=== PATIENT | female | born 1945 | race Caucasian/White ===

== ENCOUNTER 2018-08-25 08:15 | Outpatient (CLI) | payer MEDICARE, BC, SELFPAY ==
[2018-08-26 13:27] LABS: Lyme Ab w Rflx to Lyme Confirm Negative
== END 2018-08-25 08:35 ==
PROVIDERS: PCP Family Medicine; Visit Provider Family Medicine
DX: W57.XXXA Bitten or stung by nonvenomous insect and other nonvenomous arthropods, initial encounter (principal); T14.8XXA Other injury of unspecified body region, initial encounter
CPT/HCPCS: 36415; 86618

== ENCOUNTER → 2018-08-31 12:52 | Outpatient (BNVA) | payer MEDICARE, BC, SELFPAY | PROVIDERS: Visit Provider Internal Medicine Interventional Cardiology | DX: I42.9 Cardiomyopathy, unspecified (principal); I10 Essential (primary) hypertension | CPT/HCPCS: 99213 ==

== ENCOUNTER 2018-09-22 07:55 | Outpatient (CLI) | payer MEDICARE, BC, SELFPAY ==
--- NOTE | 2018-09-22 08:07 | W.PREOPHP ---
Assessment and Plan (1) Left knee DJD: Current visit: Yes Status: Chronic Plan: Discussed surgical technique, recovery, benefits and risks including but not limited to risk of infection, blood clots, damage to soft tissue/nerves/blood vessels. After discussion of risks, patient understands and elects to proceed with scheduling surgery. Patient had opportunity to have questions answered to her satisfaction. Patient will continue with her scheduled preoperative visits and will be scheduled for left TKR with Dr. Eason on September 28, 2018. She will contact office if any issues arise. History of Present Illness Narrative: Ms. Hernandez is a 72-year-old female who presents to clinic for preoperative visit for her scheduled left TKR with Dr. Eason on September 28, 2018. Patient is status post right TKR done by Dr. Eason in 2003. Patient describes left knee pain occurring daily since 2015. Patient is unable to identify a localized area of pain but describes pain as being in the middle and across the joint line. Pain is aggravated when she attempts to kneel, is cleaning and if weightbearing for extended periods of time. Patient reports that she has been unable to kneel on her left side since onset of pain, also reports she is unable to kneel on her right TKR. Patient is unable to assess if stairs aggravate her pain but does have concerns with walking upstairs for fear of falling. Patient states that her knee feels weak but denies any instability. She experiences an occasional popping sensation as well as a numbness and tingling diffusely in the left knee at night following a day of prolonged activity. Patient reports she walks 1.5-3 miles daily with her dog, describes her walking path has a slight incline. Patient is able to complete her walk without shortness of breath or left knee pain. She experiences occasional diffuse knee pain if she twists a certain way while on the walk. Patient states that her knee discomfort is keeping her from doing certain activities i.e. bike riding. Patient states occasional Tylenol and heat application help to alleviate the diffuse pain. She denies regularly taking nauh-ctg-bdskyld pain medications. Denies any falls or injuries. As per note from Dr. Eason on June 11, 2016 - x-rays of left knee ?AP weightbearing and lateral films show decreased medial joint space, moderate hypertrophic spurring, lateral view shows large posterior osteophytes on the femur and tibia. Decreased patellofemoral joint space. No signs of loose bodies. Pertinent Surgical Information Patient has pertinent medical history of status post cardiac medical laboratory technologist with no stents placed in 2011 in [place] for TORREZ and abnormal stress test. As per cardiology notes patient also has history of cardiomyopathy which shows improved LVEF of 35-40% on echo from December 2017 from her previous LVEF 30-35% on echo from March 2017. She has had the presence of left bundle branch block as EKG finding since her EKGs done in 2015, previous EKGs dating in 2008 did not show signs of LBBB. EKG from July 27, 2017 reveals sinus rhythm with left bundle branch block, heart rate 66. Patient was last seen by her marine oil terminal superintendent on August 31, 2018 and is scheduled for follow-up in December 2018. As per cardiology note from that visit, her cardiomyopathy is maintained on low-dose BIA inhibitor, beta jeny and spironolactone at this time. Patient's chart indicates she has nocturnal hypoxemia that requires oxygen, however patient reports she does not wear oxygen at night. Reports episodes of feeling short of breath during the evening but when asked she denies symptoms of orthopnea and paroxysmal nocturnal dyspnea. She did have sleep study in 2015 which was negative. Review of systems is pertinent for dyspnea which occurs when patient gets worked up about things or feels anxious. She is able to walk 1.5-3 miles with her dog daily, snowshoe in the winter, clean her house and do ADLs without dyspnea. Denies history of chest pain, pain with shortness of breath, pain with breathing, diaphoresis, syncopal episodes. Denies past medical history of: stroke, angina, asthma, COPD, sleep apnea, liver issues, hepatitis, bleeding disorders, seizures, migraines, diabetes, autoimmune disorders, thyroid issues Denies prior complications from surgery or anesthesia. Review of Systems Constitutional Denies fever(s), Denies frequent falls and Denies headache(s) Eyes Denies change in vision ENT Reports vertigo, Denies ear discharge, Reports otalgia, Denies headache(s), Denies epistaxis, Reports nasal congestion, Denies nasal discharge, Reports post nasal drip (Occasional clear phlegm), Denies sinus pain and Denies sore throat Cardiovascular Denies chest pain, Reports rapid heart rate, Denies irregular heart rhythm, Reports dyspnea (Occurs when she gets worked up about certain issues and occasionally at night), Denies dyspnea on exertion (Able to walk with her dog 1.5-3 miles without shortness of breath) and Denies slow heart rate Respiratory Reports dyspnea (Occurs when she gets worked up about certain issues and occasionally at night), Denies dyspnea on exertion (Able to walk with her dog 1.5-3 miles without shortness of breath) and Denies wheezing Comments: Denies orthopnea, denies PND Gastrointestinal Denies abdominal pain, Denies melena, Denies hematochezia, Denies nausea and Denies vomiting Comments: Reports occasional bouts of constipation and diarrhea depending on diet; denies any symptoms this week. Genitourinary Denies hematuria, Denies dysuria, Reports urinary incontinence (Wears a pad 2-3 times weekly) and Reports urinary urgency (Denies recent change) Musculoskeletal Reports as per HPI Neurologic Reports vertigo, Denies frequent falls and Denies headache(s) Psychiatric Reports anxiety and Reports depression (Stable on medication) Allergic/Immunologic Denies wheezing PFSH Family History Mother Cerebrovascular accident Father Heart disease Alcohol abuse Sister Heart disease Sister Heart disease Sister No problems noted. Sister No problems noted. Brother Heart disease Brother FH: mental illness Brother No problems noted. Son Prostate cancer Daughter Heart disease Myocardial infarction Alcohol abuse Other Crohns disease Ulcerative colitis Medical History Hyperlipidemia (Chronic) Nocturnal hypoxemia (Acute 06/07/16) Heart failure (Acute) Vertigo (Resolved) Cardiomyopathy (Chronic) Left bundle branch block (Chronic) Depressed Hypertension Kidney stones Social History marital status: current occupational status: retired pets and animals: Yes pets and animals: dog(s) frequency: daily Smoking/Tobacco Use Status: Former Tobacco Use how long ago did patient quit smoking: quit in 1999; less than 10 pack years alcohol intake: current alcohol intake frequency: a few times a month Alcohol type: beer, wine and hard liquor substance use type: does not use Surgical History Hx of cardiac cath (Resolved) History of renal stent (Resolved) History of carpal tunnel surgery of right wrist (Resolved) Abdominal hysterectomy Replacement of total knee joint Meds Home Medications Medication Instructions Recorded Confirmed Type Proventil Hfa 2 puff INHALATION Q6H PRN #1 04/21/18 09/22/18 Clinic inhaler Metoprolol Succinate 25 mg PO DAILY #90 tab-cap 05/25/18 09/22/18 Clinic aspirin 81 mg tablet,delayed 81 mg PO DAILY 08/03/18 09/22/18 History release atorvastatin 20 mg tablet 20 mg PO DAILY 08/03/18 09/22/18 History naproxen sodium 220 mg tablet 220 mg PO BID PRN 08/03/18 09/22/18 History escitalopram oxalate [Lexapro] 30 mg PO HS 09/22/18 09/22/18 History lisinopril 20 mg PO HS 09/22/18 09/22/18 History spironolactone 12.5 mg PO HS 09/22/18 09/22/18 History Allergies Allergy/AdvReac Type Severity Reaction Status Date / Time No Known Allergies Allergy Verified 09/22/18 09:41 Exam Const General: cooperative and no acute distress HENNH Head: normal to inspection, normocephalic and atraumatic Ears: external ears normal and unable to visualize TM (Left due to excessive cerumen) on the left General nose exam: external nose normal and no nasal discharge Face and sinus: face symmetric Mouth: oral mucosae normal, lip normal, tongue normal and moist mucous membranes Teeth and gingiva: fair dentition Throat: posterior oropharynx normal Eyes General: appearance normal, both eyes and all related structures Pupils: PERRL EOM: EOM intact bilaterally Neck Neck: trachea midline Carotids: normal carotid upstroke Lymphatic: no lymphadenopathy noted Resp Effort & Inspection: normal respiratory effort and able to speak in complete sentences Auscultation: clear to auscultation bilaterally, no rales, no rhonchi and no wheezes Cardio Heart Sounds: S1 normal, S2 normal, no murmurs, no rubs and no other Pulses: radial pulses present bilaterally GI Palpation: soft, no hepatosplenomegaly and nontender Auscultation: normal bowel sounds Skin General skin exam: no rashes or lesions noted Neuro General: alert, awake and other (Dizziness is elicited with walking from chair to examination table and when she attempts to cross her eyes during extraocular movement testing) Extrem Other: Left knee examination: Skin is intact without areas of erythema, lesions or rashes. Mild edema is noted inferior to medial joint line. No signs of effusion are noted. Tenderness to palpation along medial and lateral joint line. No patellar apprehension is noted. Active range of motion yields short of full extension by less than 5 degrees and flexion of 100 degrees with diffuse knee discomfort noted. Knee is stable to valgus and varus stress, however pain is elicited at the medial aspect with knee stress. Muscle strength is 5 out of 5, no pain with resisted motion. Results Labs : 09/22/18 10:38 09/22/18 10:38
[2018-09-22 11:09] LABS: Abs Immature Grans 0.02 k/cumm (0.0-0.09); Absolute Basophil Count 0.03 k/cumm (0.0-0.2); Absolute Eosinophil Count 0.19 k/cumm (0.0-0.7); Absolute Lymphocyte Count 2.07 k/cumm (1.2-3.4); Absolute Monocyte Count 0.64 k/cumm (0.11-0.7); Absolute Neutrophil Count 6.18 k/cumm (1.2-6.7); Basophils % 0.3; Eosinophils % 2.1; HCT 40.8 % (36.0-46.0); HGB 13.6 g/dL (12.0-15.5); Immature Grans % 0.2; Lymphocytes % 22.7; Mean Corp. HGB Concentration 33.3 g/dL (32.0-36.0); Mean Corpuscular Hemoglobin 31.1 pg (27.0-33.0); Mean Corpuscular Volume 93.4 fL (80-95); Mean Platelet Volume 10.5 fL (8.0-11.0); Neutrophils % 67.7; Platelet Count 200 x1000/uL (130-400); RBC 4.37 m/cumm (4.00-5.20); RBC Distribution Width 12.9 % (11.7-14.6); White Blood Cell Count 9.13 k/cumm (4.4-10.8)
[2018-09-22 11:50] LABS: Anion Gap 9.9 mmol/L (3-11); BUN 17 mg/dL (7-18); CO2 28.1 mmol/L (21.0-32.0); CREATININE 0.78 mg/dL (0.55-1.02); Chloride 101 mmol/L (98-107); NT-proBNP 115 pg/mL; Potassium 4.3 mmol/L (3.5-5.1); Sodium 139 mmol/L (136-145)
== END 2018-09-22 08:15 ==
PROVIDERS: Internal Medicine Interventional Cardiology; PCP Family Medicine; Visit Provider Orthopaedic Surgery
DX: M25.562 Pain in left knee (principal); M17.12 Unilateral primary osteoarthritis, left knee; I42.9 Cardiomyopathy, unspecified; Z01.818 Encounter for other preprocedural examination; I50.1 Left ventricular failure, unspecified
CPT/HCPCS: 36415; 80051; 84520; NC; 82565; 83880; 85025

== ENCOUNTER 2018-09-28 05:55 | Inpatient (IN) | payer MEDICARE, BC, SELFPAY ==
--- NOTE | 2018-09-22 10:45 | PDOC.CMPRO ---
- If Service Date Differs Date of service: 09/22/18 Time of Service: 10:45 Care Management Progress Note CM met with Myra for her preop. She states that she will be having a (L) total knee done on Friday09/28/[address] Eason. Myra states that she has two children, one whom resides locally. Myra states that she resides alone, and that her daughter Alannah will be staying with her for a couple of days . Rosemarie states that she has four steps into her home, and that she has a cane at home. Rosemarie states that she would like to do outpatient PT at time of DC, though is unsure as to which physical therapy office she would like to go through. If a FWW is needed Rosemarie would prefer [facility].
[2018-09-28] VITALS (19 sets, daily range): BP systolic 101–134; BP diastolic 59–78; PULSE 59–75; RESP 12–20; TEMP 35.5–37.1; O2SAT 88–98
[2018-09-28] MEDS: Lactated Ringers 1,000 ML 80 ML IV ×2 (06:49→11:05)
[2018-09-28] MEDS: Bupivacaine LIPOSOME/PF 133 MG/10 ML VIAL IJ (07:18)
[2018-09-28] MEDS: Bupivacaine 0.25% Pres-Free 10 ML VIAL (07:18)
[2018-09-28] MEDS: Hydrogen Peroxide 3% 480 ML BTL (09:26)
[2018-09-28] MEDS: HYDROmorphone 2 MG/ML VIAL IVP ×3 (11:15→11:45)
--- NOTE | 2018-09-28 11:18 | DI.RAD_ITS ---
SYMPTOM/DIAGNOSIS: CHECK TOTAL KNEE COMPONENTS, S/P TOTAL KNEE LEFT KNEE: Two views. The patient is now status post left total knee replacement. The orthopedic hardware appears in good position. The soft tissues are unremarkable. There are skin tigre present. IMPRESSION: Status post left TKR.
[2018-09-28] MEDS: Ketorolac 30 MG/ML VIAL IVP ×2 (12:14→22:46)
[2018-09-28] MEDS: POTASSIUM CHLORIDE/0.9% NACL 1,000 ML 125 MEQ IV ×2 (12:48→22:19)
[2018-09-28] MEDS: Acetaminophen 325 MG TAB 650 MG PO (12:54)
--- NOTE | 2018-09-28 13:43 | PT.INIE ---
Date of service: 09/28/18 Time of Service: 13:03 PT Notes Inpatient Physical Therapy Evaluation Date: 09/28/18 Referring Doctor: Joe Eason PT Orders: PT CONSULT: mobilize post op L total knee. Get OOB ambulating in room this afternoon. WBAT to L Precautions: WBAT L LE, knee immobilizer with walking Patient Profile/Admitting Diagnosis: Pt is a 72yr old female s/p left total knee arthroplasty by Dr. Eason 09/28/18 PMHX: vertigo, right total knee arthroplasty 2003, right carpal tunnel syndrome, cardiomyopathy, left bundle branch block, hypertension, hyperlipidemia, abdominal hysterectomy, kidney stones Social History/Home Situation: Lives alone, 4 steps with railing to enter, can stay on one level inside of home. Baseline mobility independent gait with no device, independent with ADLS. Equipment Owned/DME: cane, shower chair, grab bars by toilet. Pt will need a FWW at discharge Subjective: Pt lying in bed, drousy, able to open eyes to verbal stimulus. Alert and agreeable to PT Consult. Objective: General Observation: IV R UE, wilburn catheter, HECK dressing left leg, knee immobilizer Mental Status: A& O x3 Pain: no c/o pain Bed Mobility/Transfers: * knee immobilizer on for all transfers Supine-sit: HOB 35 degrees, supervision Sit-stand: CGA with FWW Stand-sit: CGA Sit-supine: HOB flat, Rebecca for LE's Gait: * knee immobilizer on for all gait CGA with FWW 5 side steps at bedside. Pt unable to progress to gait in room due to eyes closing in upright positions, pt transferred back to bed with fall alarm activated. Therex: Initiaited ankle pumps bilaterally 20 reps Balance: Static Sitting: normal Dynamic Sitting: normal Static Standing: fair Dynamic Standing: fair Special Tests: Mobility Limitations Standardized Measure [facility] AM-PAC 6 clicks Basic Mobility Inpatient Short Form: Raw Score: 15 Standardized Score: 39.45 CMS Score: 57.70% CMS Modifier: CK Informed Consent/Education: Patient instructed in purpose of PT consult and plan of care. Assessment: Pt is a 72yr old female s/p left total knee arthroplasty by Dr. Eason 09/28/18 in setting of vertigo, right total knee arthroplasty 2003, right carpal tunnel syndrome, cardiomyopathy, left bundle branch block, hypertension. Patient presents with clinical signs and symptoms consistent with post op day 0 L TKA, as demonstrated by the following impairment level findings: weakness left quad, decreased strength and mobility with bed transfers, standing transfers and gait, requiring one person assist for into/out of bed, increased time to complete mobility, able to stand at bedside with FWW but unable to progress to gait training this afternoon due to post operative drowsiness. Pt lives alone and needs to be independent to be able to return to home setting, will benefit from skilled therapy intervention for strengthening and progressive mobility training. Pt will need a FWW for home at discharge to reduce risk of falls post operatively. Impairments are contributing to the following functional limitations: AMPAC score CMS Score: 57.70% Patient is assessed as a High [id number] complexity based on the following: History: see above Examination: see above Presentation: evolving Decision Making: AMPAC score CMS Score: 57.70% Goals: Goals X1 week 1. Supine-Sit : independent 2. Sit-Supine : independent 3. Sit-Stand : supervision with FWW 4. Stand-Sit : supervision 5. Bed-Chair : supervision with FWW 6. Chair-Bed : supervision with FWW 7. Gait : SBA with FWW 75ftx2 WBAT L LE 8. Stairs : up.down 4 steps with railing, SBA WBAT L LE 9. Independent with home exercise program for L TKA Plan of Care/Treatment Plan: 1-2x/day, 7 days/week x 1 week. Plan of care has been reviewed with the AUXILIARY PLANT OPERATOR providing the service under Physical Therapy direction. Initiate Physical Therapy intervention for strengthening, bed mobility, transfers, gait, stairs, balance training, use of assistive device. DISCHARGE RECOMMENDATIONS: Home with FWW and home PT vs. [facility] care facility for short term rehab TREATMENT CODE/TIME: 23min IE 1300 G Codes in the area mobility of walking and moving around: current status [id number] -CK; projected status GP [id number]. Discharge status (if discharging) GP [id number] CK based on AMPAC score CMS Score: 57.70% Aundrea Lujan PT
--- NOTE | 2018-09-28 14:02 | IN_ITS ---
Date of service: 09/28/18 Time of Service: 13:03 PT Notes Inpatient Physical Therapy Evaluation Date: 09/28/18 Referring Doctor: Joe Eason PT Orders: PT CONSULT: mobilize post op L total knee. Get OOB ambulating in room this afternoon. WBAT to L Precautions: WBAT L LE, knee immobilizer with walking Patient Profile/Admitting Diagnosis: Pt is a 72yr old female s/p left total knee arthroplasty by Dr. Eason 09/28/18 PMHX: vertigo, right total knee arthroplasty 2003, right carpal tunnel syndrome , cardiomyopathy, left bundle branch block, hypertension, hyperlipidemia, abdominal hysterectomy, kidney stones Social History/Home Situation: Lives alone, 4 steps with railing to enter, can stay on one level inside of home. Baseline mobility independent gait with no device, independent with ADLS. Equipment Owned/DME: cane, shower chair, grab bars by toilet. Pt will need a FWW at discharge Subjective: Pt lying in bed, drousy, able to open eyes to verbal stimulus. Alert and agreeable to PT Consult. Objective: General Observation: IV R UE, wilburn catheter, HECK dressing left leg, knee immobilizer Mental Status: A& O x3 Pain: no c/o pain Bed Mobility/Transfers: * knee immobilizer on for all transfers Supine-sit: HOB 35 degrees, supervision Sit-stand: CGA with FWW Stand-sit: CGA Sit-supine: HOB flat, Rebecca for LE's Gait: * knee immobilizer on for all gait CGA with FWW 5 side steps at bedside. Pt unable to progress to gait in room due to eyes closing in upright positions, pt transferred back to bed with fall alarm activated. Therex: Initiaited ankle pumps bilaterally 20 reps Balance: Static Sitting: normal Dynamic Sitting: normal Static Standing: fair Dynamic Standing: fair Special Tests: Mobility Limitations Standardized Measure [facility] AM-PAC 6 clicks Basic Mobility Inpatient Short Form: Raw Score: 15 Standardized Score: 39.45 CMS Score: 57.70% CMS Modifier: CK Informed Consent/Education: Patient instructed in purpose of PT consult and plan of care. Assessment: Pt is a 72yr old female s/p left total knee arthroplasty by Dr. Eason 09/28/18 in setting of vertigo, right total knee arthroplasty 2003, right carpal tunnel syndrome, cardiomyopathy, left bundle branch block, hypertension. Patient presents with clinical signs and symptoms consistent with post op day 0 L TKA, as demonstrated by the following impairment level findings: weakness left quad, decreased strength and mobility with bed transfers, standing transfers and gait, requiring one person assist for into/out of bed, increased time to complete mobility, able to stand at bedside with FWW but unable to progress to gait training this afternoon due to post operative drowsiness. Pt lives alone and needs to be independent to be able to return to home setting, will benefit from skilled therapy intervention for strengthening and progressive mobility training. Pt will need a FWW for home at discharge to reduce risk of falls post operatively. Impairments are contributing to the following functional limitations: AMPAC score CMS Score: 57.70% Patient is assessed as a High [id number] complexity based on the following: History: see above Examination: see above Presentation: evolving Decision Making: AMPAC score CMS Score: 57.70% Goals: Goals X1 week 1. Supine-Sit : independent 2. Sit-Supine : independent 3. Sit-Stand : supervision with FWW 4. Stand-Sit : supervision 5. Bed-Chair : supervision with FWW 6. Chair-Bed : supervision with FWW 7. Gait : SBA with FWW 75ftx2 WBAT L LE 8. Stairs : up.down 4 steps with railing, SBA WBAT L LE 9. Independent with home exercise program for L TKA Plan of Care/Treatment Plan: 1-2x/day, 7 days/week x 1 week. Plan of care has been reviewed with the PNEUMATIC TESTER providing the service under Physical Therapy direction. Initiate Physical Therapy intervention for strengthening, bed mobility, transfers, gait, stairs, balance training, use of assistive device. DISCHARGE RECOMMENDATIONS: Home with FWW and home PT [facility] TREATMENT CODE/TIME: 23min IE 1300 G Codes in the area mobility of walking and moving around: current status [id number] -CK; projected status GP [id number]. Discharge status (if discharging) GP [id number] CK based on AMPAC score CMS Score: 57.70% Aundrea Lujan PT
[2018-09-28] MEDS: Docusate Sodium 100 MG CAP PO (14:21)
--- NOTE | 2018-09-28 14:36 | ROE_ITS ---
DATE OF PROCEDURE: September 28, 2018 PREOPERATIVE DIAGNOSIS: Osteoarthritis left knee with varus deformity. POSTOPERATIVE DIAGNOSIS: Same. PROCEDURE: Left total knee replacement. COMPONENTS USED: Size 2 posterior cruciate-substituting femoral component Size 2 tibial component Size 2, 10 mm posterior cruciate-substituting polyethylene spacer 32 mm tri-pronged patella All components were cemented ANESTHESIA: Spinal. SURGEON: Joe Eason M.D. CARD MOUNTER: Cristóbal Farley INDICATIONS: This is a 72-year-old white female with a several year history of osteoarthritis of her left knee. The pain has gradually progressed to the point where she is now experiencing significant disability in her activities of daily living. Total knee arthroplasty was recommended to alleviate her pain and hopefully restore some of her previous ambulatory abilities. The risks and complication s of the procedure were explained to the patient in detail preoperatively. PROCEDURE: The patient was taken to the operating room on 09/28/18. A femoral nerve block was admin istered and then a spinal anesthetic was administered. She was placed supine on the operating table. A proximal tourniquet was applied to the left thigh and the left lower extremity was prepped from t oes to tourniquet and draped free in the usual sterile fashion. Under proximal tourniquet control, an anterior midline incision was made beginning at the tibial tube rcle and extending four inches proximal to the patella. The incision was carried down to the fascia. Subcutaneous veins were cauterized. A medial parapatellar capsular incision was then made. A comp lete subperiosteal release was performed. The patella was everted and the knee was hyperflexed. Th e distal femur was resected using intramedullary alignment guides and jigs. She was found to require a size 2 femoral component. The proximal tibia was then resected using extramedullary alignment tien yarelis and jigs. Minimal resection was performed using the most damage compartment that is the medial, as a reference guide for the resection. The keel for the tibial component was then reamed and punche d out in proper rotation alignment. Trial reduction showed the knee came to full extension while sti ll being stable throughout the range of flexion with a 10 mm insert. Finally the patella was resecte d using a patellar resection guide and oscillating saw. 15 mm thickness of patella was left for impl antation. Using the drill guide for the 32 mm tri-pronged patella, the holes for the pegs were then reamed in proper rotation alignment. Medial and lateral meniscectomy were performed. ACL and PCL we re sacrificed. The posterior capsule was freed with an elevator. Posterior osteophytes were removed . The hole for the intramedullary alignment jig was plugged with bone from the resection to limit po stop bleeding. The proximal tibia was prepared for cementing with pulse irrigation lavage of saline solution and drying with peroxide-soaked strip sponges. One batch of Gentamicin-impregnated methylme thacrylate was vacuum mixed and was hand packed onto the prepared tibia. The tibial component was in serted after coating the back of the tibial component with methylmethacrylate. It was further impact ed with the impactor mallet and then trial components were inserted and the knee was extended, furthe r pressuring the cement. Excess cement was trimmed from the margins of the tibial component while th e cement was still soft using the plastic cement removal tool. When the first batch of Gentamicin mason d cured, the trial components were removed. The distal femur and patella were prepared for cementing with pulse irrigation lavage of saline solut ion and drying with peroxide-soaked strip sponges. Another batch of Gentamicin-impregnated methylmet hacrylate was hand packed onto the distal femur and patella. The posterior aspect of the femoral com ponent and the patellar component were then coated with cement. The femoral component was inserted a nd packed into place and pressurized using the trial insert and extending the knee. The patellar com ponent was inserted and pressurized using the patellar clamp. Excess cement was trimmed from the mar gins of the femoral component and the patellar component while the cement was still soft using the pl astic cement removal tool. When the second batch of methylmethacrylate had cured, the trial insert w as removed. The posterior recesses were checked and any residual bone or cement debris was removed a t this point. The knee was irrigated a final time with pulse irrigation lavage of saline solution an d then irrigated with Betadine and saline solution. The Betadine and saline solution was left in the sound for sixty seconds before suctioning. The actual insert, size 2 posterior cruciate-substituting, 10 mm, was then placed on the tibial compo nent and reduced onto the femoral condyles. Patellar tracking was anatomic using the [id number] b. The knee was flexed over soft goods and closure was begun. The posterior capsule and wound margins were then infiltrated with 0.5% Marcaine with epinephrine agnieszka ution. The medial parapatellar capsular incision and the incision in the quadriceps were repaired us ing interrupted [id number] sutures of #1 Vicryl suture material. The subcu was approximated wit h interrupted #2-0 Vicryl sutures. The skin edges were approximated with skin tigre. Sterile dres sings were applied of Xeroform gauze, sterile gauze 4x4's, ABD pads and wrapped with a Kerlix bandage . A long-leg Mcmullen compressive dressing was applied. The tourniquet was released. The knee immobil izer splint was placed over the Mcmullen dressing, maintaining the knee in extension. Blood loss was mi nimal. The patient tolerated the procedure well and without complication. She was discharged to the Recovery Room in good condition.
[2018-09-28] MEDS: Escitalopram 20 MG TAB 30 MG PO (22:30)
[2018-09-28] MEDS: Spironolactone 25 MG TAB 12.5 MG PO (22:48)
[2018-09-28] MEDS: Lisinopril 20 MG TAB PO (22:48)
[2018-09-29 04:30] VITALS: BP 101/62; PULSE 65; RESP 16; TEMP 36.3; O2SAT 95
[2018-09-29] MEDS: Ketorolac 30 MG/ML VIAL IVP ×4 (04:38→21:51)
[2018-09-29] MEDS: Normal Saline Flush 10 ML SYR IV (04:39)
[2018-09-29] MEDS: POTASSIUM CHLORIDE/0.9% NACL 1,000 ML 125 MEQ IV (06:08)
[2018-09-29 07:24] VITALS: BP 111/67; PULSE 68; RESP 19; TEMP 36.4; O2SAT 97
[2018-09-29 07:25] LABS: HCT 32.5 % (36.0-46.0); HGB 10.7 g/dL (12.0-15.5); Mean Corp. HGB Concentration 32.9 g/dL (32.0-36.0); Mean Corpuscular Hemoglobin 30.9 pg (27.0-33.0); Mean Corpuscular Volume 93.9 fL (80-95); Platelet Count 150 x1000/uL (130-400); RBC 3.46 m/cumm (4.00-5.20); RBC Distribution Width 12.7 % (11.7-14.6); White Blood Cell Count 9.65 k/cumm (4.4-10.8)
[2018-09-29] MEDS: Docusate Sodium 100 MG CAP PO ×3 (08:24→20:08)
[2018-09-29] MEDS: Metoprolol CR 25 MG TABCR PO (08:24)
[2018-09-29] MEDS: Multivitamin w/Minerals TAB 1 TAB PO (08:24)
[2018-09-29] MEDS: Atorvastatin 20 MG TAB PO (08:25)
[2018-09-29] MEDS: Aspirin E.C. 81 MG TABEC PO (08:25)
[2018-09-29] MEDS: Pantoprazole 40 MG TABCR PO (08:25)
[2018-09-29] MEDS: Acetaminophen 325 MG TAB 650 MG PO ×3 (08:25→20:09)
--- NOTE | 2018-09-29 09:22 | PT.INTREAT ---
Date of service: 09/29/18 Time of Service: 09:22 PT Notes Inpatient Physical Therapy Treatment Note Date: 09/29/18 PRECAUTIONS: WBAT L LE, Fall precautions SUBJECTIVE: Pt lying in bed, does not remember therapy session from yesterday. Agreeable to PT session. OBJECTIVE: General observation: UMANG DAVIDSON dressing and knee immobilizer L LE PAIN: c/o pain left knee with standing, received pain medication prior to therapy session, RN notified pt still experiencing pain BED MOBILITY/TRANSFERS * knee immobilizer on for all transfers Rolling L/R: independent Supine-sit: HOB 30 degrees, independent Sit-stand: CGA with FWW Stand-sit: [facility] Bed-Chair: CGA with FWW GAIT * knee immobilizer on for all gait Assistive Device: FWW Weight bearing: WBAT L LE Assist: [facility] Distance: 25ftx2 Deviation: slow step- to gait pattern, pt required step by step instruction for step sequence. Pt with tendency to go too fast and take too long a step with L LE. Pt able to perform correct sequence with continued instruction. Pt left up in recliner chair with LE's elevated. THEREX: ankle pumps, quad sets x 20 reps bilaterally ASSESSMENT: Pt able to progress to gait training to doorway and back to chair this morning, pain limited therapy session, pt stating she does not want to take pain medication. Discussed with RN who will talk with patient. Pt with decreased safety awareness requiring step by step instruction for mobility, pt not safe to be up alone at this time. PLAN: Progress transfers Progress gait TREATMENT CODE/TIME: 25min TAx1 TPx1 9:20 Aundrea Lujan PT
[2018-09-29] MEDS: Enoxaparin 40 MG/0.4 ML SYR SC (09:25)
--- NOTE | 2018-09-29 09:30 | PTTR_ITS ---
Date of service: 09/29/18 Time of Service: 09:22 PT Notes Inpatient Physical Therapy Treatment Note Date: 09/29/18 PRECAUTIONS: WBAT L LE, Fall precautions SUBJECTIVE: Pt lying in bed, does not remember therapy session from yesterday. Agreeable to PT session. OBJECTIVE: General observation: UMANG DAVIDSON dressing and knee immobilizer L LE PAIN: c/o pain left knee with standing, received pain medication prior to therapy session, RN notified pt still experiencing pain BED MOBILITY/TRANSFERS * knee immobilizer on for all transfers Rolling L/R: independent Supine-sit: HOB 30 degrees, independent Sit-stand: CGA with FWW Stand-sit: [facility] Bed-Chair: CGA with FWW GAIT * knee immobilizer on for all gait Assistive Device: FWW Weight bearing: WBAT L LE Assist: [facility] Distance: 25ftx2 Deviation: slow step- to gait pattern, pt required step by step instruction for step sequence. Pt with tendency to go too fast and take too long a step with L LE. Pt able to perform correct sequence with continued instruction. Pt left up in recliner chair with LE's elevated. THEREX: ankle pumps, quad sets x 20 reps bilaterally ASSESSMENT: Pt able to progress to gait training to doorway and back to chair this morning, pain limited therapy session, pt stating she does not want to take pain medication. Discussed with RN who will talk with patient. Pt with decreased safety awareness requiring step by step instruction for mobility, pt not safe to be up alone at this time. PLAN: Progress transfers Progress gait TREATMENT CODE/TIME: 25min TAx1 TPx1 9:20 Aundrea Lujan PT
--- NOTE | 2018-09-29 09:53 | PDOC.CMIN ---
- If Service Date Differs Date of service: 09/29/18 Time of Service: 09:54 Care Management Initial Assess REASON FOR HOSPITALIZATION:: Left total knee PAST MEDICAL HISTORY/PAST SURGICAL HISTORY:: Hyperkalemia, cardiac cath, renal stent, history of carpal tunnel, heart failure, vertigo, hypokalemia, hypomagnesia, nocturnal hypoxemia PREVIOUS FUNCTIONAL STATUS/SOCIAL/FAMILY SUPPORTS:: Myra has two children, one whom resides locally. Myra states that she resides alone, and that her daughter Alannah will be staying with her for a couple of days Rosemarie states that she has four steps into her home, and that she has a cane at home. CURRENT FUNCTIONAL STATUS:: Rosemarie is sitting up on the side of the bed when CM enters the room, she is engaged during assessment. She states her recovery is going as expected. Rosemarie has PT consult. ADVANCE DIRECTIVES:: None on file she would like to complete during this admission. Has patient been provided with information about the portal?: Yes Did the patient sign up for the portal?: No CODE STATUS:: Full Code INSURANCE COVERAGE / FINANCIAL ISSUES:: Medicare, BCBS CURRENT HOME/COMMUNITY SERVICES/EQUIPMENT:: Cane she will attend outpatient services through [facility] for PT. She will need FWW at time of discharge. POTENTIAL DISCHARGE NEEDS:: Follow up appointment scheudled with and outpatient PT PATIENT/FAMILY EDUCATION NEEDS:: Discharge education, limitations, follow-up plan of care, ask me 3 discussion and self-management. ANTICIPATED BARRIERS TO DISCHARGE:: No identified barriers at this time. TRANSPORTATION:: Via family at time of discharge private car. PLAN:: Rosemarie will be discharged home when medically ready per proivder. Anticipate she will be discharged home mid week per provider. CM to coordinate a FWW through Jack at [facility]. Rosemarie states that she would like to do outpatient PT through [facility] in [place], [place].
--- NOTE | 2018-09-29 11:32 | PHARADMIT ---
Admission Pharmacy Clinical Review POST-OP TOTAL LEFT KNEE Code Status Full Code Current Weight Wgt- 86.1 kg Renally Cleared and Narrow Therapeutic Index Meds CrCl~ 44.98 mL/min Meds-OK QTc Value / Action Taken NA BP Control, Fever BP-111/67 TMAX-37.1C Electrolytes reviewed NA DVT Prophylaxis Lovenox Opiate Usage / Scheduled Bowel Regimen Ordered Yes Yes Plt/SCr for Heparin / Enoxaparin Plts- 150 SCr-0.78 INR for Warfarin NA H/H stable, WBC/Bands H&H- 10.7/32.5 WBC- 9.65 Antibiotic appropriateness Ancef Cultures and Sensitivities na Surgical ABX d/c within 24 hr Yes DM control / Insulin Dosing NA Heart Failure (Check EF%) (BIA's, B-Block, Diuretics) Lisinopril,Spironolactone IV to PO Switch Home Meds Reviewed Home Meds Not Ordered Comments
[2018-09-29 11:50] VITALS: BP 93/60; PULSE 51; RESP 18; TEMP 35.8; O2SAT 96
--- NOTE | 2018-09-29 14:14 | PT.INTREAT ---
Date of service: 09/29/18 Time of Service: 13:50 PT Notes Date: 09/29/18 PRECAUTIONS: WBAT L LE, Fall precautions Phone call received from Dr. Eason with verbal order to remove HECK dressing from patient following protocol and begin Cryocuff cold therapy. SUBJECTIVE: Pt lying in bed, agreeable to PT consult, more alert this afternoon. OBJECTIVE: PAIN:no c/o pain left knee, pain better controlled this afternoon DRESSING: Per MD instruction, HECK dressing removed from left knee and replaced with [id number] Mepilex dressing and thigh high HANNAH hose. Incision looked clean, no signs of bleeding or drainage. Knee immobilizer refit to leg for use with gait training. Cryocuff cold therapy applied to left knee after session completed. Pt instructed in use of cryocuff for home setting. ROM: AROM left knee -3ext to 60 degrees flexion BED MOBILITY/TRANSFERS * knee immobilizer on for all transfers Rolling L/R: independent Supine-sit: HOB 30 degrees, independent Sit-stand: SBA with FWW Stand-sit: supervision Bed-Chair: SBA with FWW GAIT * knee immobilizer on for all gait Assistive Device: FWW Weight bearing: WBAT L LE Assist: [facility] Distance: 200ft Deviation: pt able to progress to step through gait pattern with steady stride and janak. Pt up in recliner chair after session completed, legs elevated, cryocuff applied to left knee. THEREX: ankle pumps, quad sets, glute sets x 20 reps bilaterally, AA SLR x 10 reps ASSESSMENT: Pt mobilizing well this afternoon with no complaints of pain. Left knee ROM initiated, pt has quad activation with left SLR, not yet able to perform SLR independently. Will progress to stair training in am PLAN: Progress transfers Progress gait Progress to stair training TREATMENT CODE/TIME: 40min TAx2 TPx1 1350 Aundrea Lujan PT
--- NOTE | 2018-09-29 14:30 | W.PM.PROGNOT ---
Objective Objective Clinical Data: Abnormal lab results 09/29/18 Range/Units 06:10 RBC 3.46 L (4.00-5.20) m/cumm Hgb 10.7 L (12.0-15.5) g/dL Hct 32.5 L (36.0-46.0) % Vital Signs Temperature 96.4 F L 09/29/18 11:50 Temperature Source Tympanic 09/29/18 11:50 Pulse 51 L 09/29/18 11:50 Pulse Rhythm Regular 09/29/18 11:04 Respiratory Rate 18 09/29/18 11:50 Respiratory Effort 09/29/18 11:04 Respiratory Depth Normal 09/29/18 11:04 Respiratory Pattern Normal 09/29/18 11:04 Blood Pressure 93/60 L 09/29/18 11:50 Pulse Oximetry 96 09/29/18 11:50 Respiratory End-tidal CO2 36 09/28/18 12:16 Oxygen Delivery Method Room Air 09/29/18 11:50 Oxygen Flow Rate 0 09/29/18 11:50 Pain Level 6 09/29/18 12:15 Comment 09/29/18 11:50 Intake & Output 09/28/18 09/29/18 09/29/18 23:59 11:59 23:59 Intake Total 4360 / 4360 1463.667 / 1463.667 Output Total 200 / 200 675 / 675 Balance 4160 / 4160 788.667 / 788.667 Intake: IV 3500 / 3500 1223.667 / 1223.667 Oral 860 / 860 240 / 240 Output: Urine 200 / 200 675 / 675 Other: Urine Color Straw Yellow Urine Appearance Clear Clear Emesis Description None Voiding Methods Toilet Laboratory Results WBC 9.65 k/cumm (4.4-10.8) 09/29/18 06:10 RBC 3.46 m/cumm (4.00-5.20) L 09/29/18 06:10 Hgb 10.7 g/dL (12.0-15.5) L 09/29/18 06:10 Hct 32.5 % (36.0-46.0) L 09/29/18 06:10 MCV 93.9 fL (80-95) 09/29/18 06:10 MCH 30.9 pg (27.0-33.0) 09/29/18 06:10 MCHC 32.9 g/dL (32.0-36.0) 09/29/18 06:10 RDW 12.7 % (11.7-14.6) 09/29/18 06:10 Plt Count 150 x1000/uL (130-400) 09/29/18 06:10 MPV 11.0 fL (8.0-11.0) 09/29/18 06:10
--- NOTE | 2018-09-29 15:17 | PGE_ITS ---
Assessment and Plan (1) Left knee DJD: Start date: 09/29/18 Start time: 15:15 Current visit: No Status: Chronic Assessment: Stable postop day #1 left total knee replacement. I think she is doing well enough that her postop mobilization can be sped up. Plan: We will have the physical therapist remove her Mcmullen dressing and apply a long-leg Sea stocking to the left leg. We will start active flexion exercises to her left knee this afternoon. Will start using a Cryo/Cuff to the left knee 4 times a day for an hour each time. Will DC her IV fluids but leave the IV in for access. If she does well with her mobilization and she is only taking p.o. pain meds I would discharge her tomorrow afternoon. Subjective Interval history since last seen: Rosemarie is feeling well. She wants to know if she can go home tomorrow. She is been able urinate since her Aguliar was DC' d. Her pain is well controlled. Exam Narrative Exam Narrative: She is afebrile. Her vital signs are stable. She can actively dorsiflex and plantarflex her left foot. She has normal sensation to light touch in her left foot. She has been up ambulating with physical therapy. Not had to use supplemental IV opioids Objective Objective Clinical Data: Abnormal lab results 09/29/18 Range/Units 06:10 RBC 3.46 L (4.00-5.20) m/cumm Hgb 10.7 L (12.0-15.5) g/dL Hct 32.5 L (36.0-46.0) % Vital Signs Temperature 35.8 C L 09/29/18 11:50 Temperature Source Tympanic 09/29/18 11:50 Pulse 51 L 09/29/18 11:50 Pulse Rhythm Regular 09/29/18 11:04 Respiratory Rate 18 09/29/18 11:50 Respiratory Effort 09/29/18 11:04 Respiratory Depth Normal 09/29/18 11:04 Respiratory Pattern Normal 09/29/18 11:04 Blood Pressure 93/60 L 09/29/18 11:50 Pulse Oximetry 96 09/29/18 11:50 Respiratory End-tidal CO2 36 09/28/18 12:16 Oxygen Delivery Method Room Air 09/29/18 11:50 Oxygen Flow Rate 0 09/29/18 11:50 Pain Level 6 09/29/18 12:15 Comment 09/29/18 11:50 Intake & Output 09/28/18 09/29/18 09/29/18 23:59 11:59 23:59 Intake Total 4360 / 4360 1463.667 / 1463.667 Output Total 200 / 200 675 / 675 Balance 4160 / 4160 788.667 / 788.667 Intake: IV 3500 / 3500 1223.667 / 1223.667 Oral 860 / 860 240 / 240 Output: Urine 200 / 200 675 / 675 Other: Urine Color Straw Yellow Urine Appearance Clear Clear Emesis Description None Voiding Methods Toilet Laboratory Results WBC 9.65 k/cumm (4.4-10.8) 09/29/18 06:10 RBC 3.46 m/cumm (4.00-5.20) L 09/29/18 06:10 Hgb 10.7 g/dL (12.0-15.5) L 09/29/18 06:10 Hct 32.5 % (36.0-46.0) L 09/29/18 06:10 MCV 93.9 fL (80-95) 09/29/18 06:10 MCH 30.9 pg (27.0-33.0) 09/29/18 06:10 MCHC 32.9 g/dL (32.0-36.0) 09/29/18 06:10 RDW 12.7 % (11.7-14.6) 09/29/18 06:10 Plt Count 150 x1000/uL (130-400) 09/29/18 06:10 MPV 11.0 fL (8.0-11.0) 09/29/18 06:10
[2018-09-29 16:21] VITALS: BP 103/66; PULSE 61; RESP 18; TEMP 36.3; O2SAT 92
[2018-09-29 19:08] VITALS: BP 100/63; PULSE 71; RESP 18; TEMP 36.3; O2SAT 93
[2018-09-29] MEDS: Lisinopril 20 MG TAB PO (21:47)
[2018-09-29] MEDS: Escitalopram 20 MG TAB 30 MG PO (21:47)
[2018-09-29] MEDS: Spironolactone 25 MG TAB 12.5 MG PO (21:47)
[2018-09-29 23:15] VITALS: BP 106/57; PULSE 74; RESP 19; TEMP 37; O2SAT 92
[2018-09-30] MEDS: Ketorolac 30 MG/ML VIAL IVP ×2 (03:10→09:10)
[2018-09-30] MEDS: Normal Saline Flush 10 ML SYR IV ×2 (03:12→09:12)
[2018-09-30 04:30] VITALS: BP 102/65; PULSE 70; RESP 16; TEMP 37; O2SAT 92
[2018-09-30 07:20] VITALS: BP 102/68; PULSE 71; RESP 16; TEMP 36.8; O2SAT 93
[2018-09-30 07:21] LABS: HGB 10.1 g/dL (12.0-15.5); Mean Corp. HGB Concentration 32.6 g/dL (32.0-36.0); Mean Corpuscular Hemoglobin 30.8 pg (27.0-33.0); Mean Corpuscular Volume 94.5 fL (80-95); Mean Platelet Volume 10.8 fL (8.0-11.0); Platelet Count 134 x1000/uL (130-400); RBC 3.28 m/cumm (4.00-5.20); RBC Distribution Width 12.8 % (11.7-14.6); White Blood Cell Count 8.86 k/cumm (4.4-10.8)
--- NOTE | 2018-09-30 08:07 | PT.INTREAT ---
Date of service: 09/30/18 Time of Service: 08:08 PT Notes Inpatient Physical Therapy Treatment Note Date: 09/30/18 PRECAUTIONS: WBAT L LE, Fall precautions SUBJECTIVE: Pt lying in bed, agreeable to therapy session, states she feels she is ready to go home today. OBJECTIVE: PAIN:no c/o pain BED MOBILITY/TRANSFERS * knee immobilizer on for all transfers Rolling L/R: independent Supine-sit: independent Sit-stand: independent with FWW Stand-sit: indpendent Bed-Chair: supervision with FWW GAIT * knee immobilizer on for all gait Assistive Device: FWW Weight bearing: WBAT L LE Assist: supervision Distance: 250ft Deviation: steady step through gait pattern, good stride and janak. Pt left up in recliner chair with legs elevated. STAIRS up/down 5 steps with railing, supervision THEREX: ankle pumps, quad sets, glute sets x 20 reps bilaterally, AA SLR x 10 reps ASSESSMENT: Pt mobilizing well with transfers and gait with FWW, able to perform steps without assistance. Pt is ready for discharge to home setting when medically cleared. Will need FWW for gait stability in home setting. PLAN: Review TKA program TREATMENT CODE/TIME: 24min TAx1 TPx1 8:55 Aundrea Lujan PT
[2018-09-30] MEDS: Enoxaparin 40 MG/0.4 ML SYR SC (09:09)
[2018-09-30] MEDS: Pantoprazole 40 MG TABCR PO (09:09)
[2018-09-30] MEDS: Docusate Sodium 100 MG CAP PO (09:10)
[2018-09-30] MEDS: Atorvastatin 20 MG TAB PO (09:10)
[2018-09-30] MEDS: Multivitamin w/Minerals TAB 1 TAB PO (09:10)
[2018-09-30] MEDS: Metoprolol CR 25 MG TABCR PO (09:10)
[2018-09-30] MEDS: Aspirin E.C. 81 MG TABEC PO (09:10)
[2018-09-30 11:20] VITALS: BP 107/66; PULSE 69; RESP 16; TEMP 37.1; O2SAT 93
--- NOTE | 2018-09-30 12:39 | DSE_ITS ---
Date of service: 09/30/18 Time of Service: 12:34 Discharge Plan Disposition Patient Disposition: HOME Condition: Good Discharge Details Reason For Visit: OA L KNEE/POST-OP TKR Admit Date/Time: 09/28/18 05:55 Admit Provider: Joe Eason Attending Provider: Joe Eason Primary Care Provider: Chapo Toribio Hospital Course Hospital Course: Patient had L tkr on . Had no post-op complications. mProgressed rapidly with mobilization with physical therapy, achieving all acute care goals by . She remained afebrile throughout the post-op period. Was fully independant with transfers and ambulation by time of discharge home. Home Meds and New Rx's Prescriptions: New celecoxib [Celebrex] 200 mg capsule 200 mg PO BID Qty: 30 RF: 0 oxycodone-acetaminophen 5-325 mg tablet 1 tab PO Q6H PRN (Reason: pain) Qty: 20 RF: 0 No Action PROVENTIL HFA 18 GM HFA.AER.AD 2 puff Inhalation Q6H PRN Qty: 1 RF: 2 Metoprolol Succinate 25 MG TAB.ER.24H 25 mg PO DAILY Qty: 90 RF: 4 atorvastatin [Lipitor] 20 mg tablet 20 mg PO DAILY RF: 0 aspirin [Adult Aspirin Regimen] 81 mg tablet,delayed release (DR/EC) 81 mg PO DAILY RF: 0 naproxen sodium [Aleve] 220 mg tablet 220 mg PO BID PRN (Reason: pain) RF: 0 lisinopril 20 mg tablet 20 mg PO HS RF: 0 spironolactone 25 MG tablet 12.5 mg PO HS RF: 0 escitalopram oxalate [Lexapro] 20 mg tablet 30 mg PO HS RF: 0 Discharge Instructions Additional Instructions: Elevate L leg when sitting. Use walker, crutches or cane as long as you limp. May shower and get tigre wet tomorrow. After showering, cover tigre with light gauze dressing so the tigre don't catch on clothes. Apply cryocuff to L knee 4 times/day for 1 hour each time. Wear log leg stocking L during daytime only for next 2 weeks. Take one baby aspirin twice/day for 30 days to prevent blood clots in legs. Walk every day as much as your discomfort allows. Outpatient physical therapy on Friday for rehab of L total knee. Follow up with in 2 weeks. Referrals: Joe Eason MD [ [facility] STAFF PHYSICIAN] - (f/u in 2 weeks.) Kishor Sorensen, PT [PHYSICAL THERAPIST] - (Begin total knee rehab on Friday) Activity:: Activity as Tolerated Equipment/Supplies:: Walker Diet:: As Tolerated Discharge Orders Discharge Orders: Discharge Order (Routine); Ordered 09/30/18 Ordered By: Joe Eason DS: Data Vitals/I&O Vitals and I&O: Vital Signs Temperature 37.1 C 09/30/18 11:20 Temperature Source Tympanic 09/30/18 11:20 Pulse 69 09/30/18 11:20 Pulse Rhythm Regular 09/29/18 19:30 Respiratory Rate 16 09/30/18 11:20 Respiratory Effort 09/29/18 19:30 Respiratory Depth Normal 09/29/18 19:30 Respiratory Pattern Normal 09/29/18 19:30 Blood Pressure 107/66 09/30/18 11:20 Pulse Oximetry 93 L 09/30/18 11:20 Respiratory End-tidal CO2 36 09/28/18 12:16 Oxygen Delivery Method Room Air 09/30/18 11:20 Oxygen Flow Rate 0 09/30/18 11:20 Pain Level 2 09/30/18 09:12 Comment 09/29/18 11:50 Intake & Output 09/29/18 09/30/18 09/30/18 23:59 11:59 23:59 Intake Total 1034 / 1034 570 / 570 Output Total 500 / 500 1450 / 1450 Balance 534 / 534 -880 / -880 Intake: IV 644 / 644 20 / 20 Oral 390 / 390 550 / 550 Output: Urine 500 / 500 1450 / 1450 Other: Urine Color Light Tiff Yellow Urine Appearance Clear Clear Urine Odor None Comment Void x1 in the toilet. Voiding Methods Toilet Toilet Labs on day of discharge: Labs from last 24 hours 09/30/18 06:50 WBC 8.86 RBC 3.28 L Hgb 10.1 L Hct 31.0 L MCV 94.5 MCH 30.8 MCHC 32.6 RDW 12.8 Plt Count 134 MPV 10.8
--- NOTE | 2018-09-30 16:26 | PDOC.CMDIS ---
- If Service Date Differs Date of service: 09/30/18 Time of Service: 16:26 LACE Index Scoring Tool - Questions: Length of Stay (in days): 3 Acuity (Admit via E.D.?): No E.D. Visits: 0 - Answers: Total Score: 3 Risk of Readmission: Low Risk Care Management Discharge Reason for Hospitalization: Left total knee Discharge Plan: Rosemarie is being discharged home today per . CM coordianted a FWW prior to discharge through [facility]. She will be transported home via private car with family. Rosemarie will follow up with outpatient PT, and Dr. Eason as directed. She was unable to complete her advance directives today however is willing to return and do them with CM at a later date. Rosemarie states her pain is well controlled and she is looking forward to returning home. Patient/Family Education Needs: Discharge education, limitations and follow up plan of care. Services Needed at Discharge: DME Agency
--- NOTE | 2018-10-01 07:34 | PT.INDS ---
Date of service: 10/01/18 Time of Service: 07:34 PT Notes Inpatient Physical Therapy Discharge Summary Date: 10/01/18 Dates of Service: 09/28/18-09/30/18 SUBJECTIVE: NT OBJECTIVE: 09/28/18-09/30/18 Bed Mobility/Transfers: * knee immobilizer on for all transfers Supine-sit: independent Sit-stand: independent Stand-sit: independent Gait: * knee immobilizer on for all gait supervision with FWW 250ft Stairs: up/down 5 steps with railing supervision Balance: Static Sitting: normal Dynamic Sitting: normal Static Standing: fair Dynamic Standing: fair Assessment: Pt is a 72yr old female s/p left total knee arthroplasty by Dr. Eason 09/28/18 in setting of vertigo, right total knee arthroplasty 2003, right carpal tunnel syndrome, cardiomyopathy, left bundle branch block, hypertension. Patient was seen for 4 PT visits. Progressed from supervision bed transfers to independent, from CGA standing transfers to independent, from CGA gait with FWW 5 steps to supervision gait with FWW 250ft. Pt is discharged to home setting. Goals: Goals X1 week 1. Supine-Sit : independent 2. Sit-Supine : independent 3. Sit-Stand : supervision with FWW 4. Stand-Sit : supervision 5. Bed-Chair : supervision with FWW 6. Chair-Bed : supervision with FWW 7. Gait : SBA with FWW [id number] WBAT L LE 8. Stairs : up.down 4 steps with railing, SBA WBAT L LE 9. Independent with home exercise program for L TKA Pt met goals # 1-9 DISCHARGE RECOMMENDATIONS: Home with FWW G Codes in the area mobility of walking and moving around: projected status GP [id number]. Discharge status (if discharging) GP [id number] CK Aundrea Lujan PT
== END 2018-09-30 13:57 | disposition home or self-care (01) | DRG 470 ==
LOC: PDS 07:47 → MS 11:02
PROVIDERS: Admitting Provider Orthopaedic Surgery; PCP Family Medicine; Visit Provider Orthopaedic Surgery
PROC: 0SRD0J9 Replacement of Left Knee Joint with Synthetic Substitute, Cemented, Open Approach (ICD-10-PCS; CPT 27447; principal; 2018-09-28 07:30)
DX: M17.12 Unilateral primary osteoarthritis, left knee (principal); I42.9 Cardiomyopathy, unspecified; Z96.652 Presence of left artificial knee joint; Z96.651 Presence of right artificial knee joint; G47.36 Sleep related hypoventilation in conditions classified elsewhere; E78.5 Hyperlipidemia, unspecified; I10 Essential (primary) hypertension; I44.7 Left bundle-branch block, unspecified; G89.18 Other acute postprocedural pain
CPT/HCPCS: 27447; 36415; 76942; 85027; 97110; 97163; 97530; J1650; NC; 73560; J0131; J0690; J1100; J1885; J2250; J2405; J3010; L1830

== ENCOUNTER → 2018-10-14 10:19 | Outpatient (BNVA) | payer MEDICARE, BC, SELFPAY | PROVIDERS: PCP Family Medicine; Referring Provider Family Medicine; Visit Provider Orthopaedic Surgery | DX: Z47.1 Aftercare following joint replacement surgery (principal); Z96.652 Presence of left artificial knee joint ==

== ENCOUNTER → 2018-11-17 08:56 | Outpatient (BNVA) | payer MEDICARE, BC, SELFPAY | PROVIDERS: PCP Family Medicine; Referring Provider Family Medicine; Visit Provider Orthopaedic Surgery | DX: M17.12 Unilateral primary osteoarthritis, left knee (principal); Z47.89 Encounter for other orthopedic aftercare; G56.02 Carpal tunnel syndrome, left upper limb | CPT/HCPCS: 99213; L3908 ==

== ENCOUNTER 2018-12-08 15:24 | Emergency (ER) | payer MEDICARE, BC, SELFPAY ==
[2018-12-08] VITALS (31 sets, daily range): BP systolic 95–124; BP diastolic 52–103; PULSE 47–75; RESP 9–28; TEMP 36.7; O2SAT 94–99
[2018-12-08] MEDS: Normal Saline 500 ML 1000 ML IV (16:31)
[2018-12-08 16:41] LABS: Abs Immature Grans 0.01 k/cumm (0.0-0.09); Absolute Basophil Count 0.04 k/cumm (0.0-0.2); Absolute Eosinophil Count 0.17 k/cumm (0.0-0.7); Absolute Lymphocyte Count 1.74 k/cumm (1.2-3.4); Absolute Monocyte Count 0.57 k/cumm (0.11-0.7); Absolute Neutrophil Count 5.45 k/cumm (1.2-6.7); Basophils % 0.5; Eosinophils % 2.1; HGB 13.4 g/dL (12.0-15.5); Immature Grans % 0.1; Lymphocytes % 21.8; Mean Corp. HGB Concentration 32.7 g/dL (32.0-36.0); Mean Corpuscular Hemoglobin 30.3 pg (27.0-33.0); Mean Corpuscular Volume 92.8 fL (80-95); Mean Platelet Volume 10.5 fL (8.0-11.0); Monocytes % 7.1; Neutrophils % 68.4; Platelet Count 195 x1000/uL (130-400); RBC 4.42 m/cumm (4.00-5.20); RBC Distribution Width 13.1 % (11.7-14.6); White Blood Cell Count 7.98 k/cumm (4.4-10.8)
[2018-12-08 17:02] LABS: ALT 15 U/L (12-78); AST 13 U/L (15-37); Albumin 3.7 g/dL (3.4-5.0); Alkaline Phosphatase 75 U/L (46-116); Anion Gap 8.8 mmol/L (3-11); BUN 23 mg/dL (7-18); Bilirubin, Total 0.5 mg/dL (0.2-1.0); CO2 27.2 mmol/L (21.0-32.0); CREATININE 0.88 mg/dL (0.55-1.02); Calcium 9.1 mg/dL (8.5-10.1); Chloride 105 mmol/L (98-107); Glucose 90 mg/dL (70-100); NT-proBNP 200 pg/mL; Sodium 141 mmol/L (136-145); TSH (W/Ref FT4) 0.53 uIU/mL (0.358-3.74); Total Protein 7.3 g/dL (6.4-8.2)
[2018-12-08 17:04] LABS: Troponin I < 0.02 ng/mL (0.00-0.06)
[2018-12-08 17:12] LABS: D-Dimer 4260 ng/mlFEU (<500)
--- NOTE | 2018-12-08 17:34 | DI.CT_ITS ---
SYMPTOMS/DIAGNOSIS: CONFUSION, SOB, ? PE CT BRAIN: Noncontrast. Comparison 04/17/16. There is global cerebral atrophy consistent with the patient's age. There are areas of decreased attenuation in the white matter consistent with small vessel ischemic disease. No acute infarct, hemorrhage, midline shift or mass effect is identified. The ventricles are intact. The basilar cisterns are patent. The calvarium is intact. The visualized paranasal sinuses are clear. No fluid levels are seen. The mastoid air cells are well pneumatized. IMPRESSION: No acute intracranial process. CTA PE CHEST: CT angiography was performed with multi slice acquisition and multi planar and 3D reconstruction. CT scan of the chest was performed according to the pulmonary embolus protocol. There are no priors for comparison. There is no evidence of a pulmonary embolus. There is atherosclerosis of the thoracic aorta but no aneurysmal dilatation or dissection is present. The heart size is within normal limits. No significant pericardial effusion is seen. No findings to suggest right ventricular dysfunction are present. Coronary artery calcifications are seen. No evidence of thoracic adenopathy, pleural effusion or pneumothorax is identified. There is a calcified granuloma in the left lower lobe. Atelectasis is seen in the lung bases right greater than left. The tracheobronchial tree is unremarkable. The upper abdominal images show a 0.8 cm hypodense lesion in the left lobe likely reflecting a cyst. There is prominence of the left adrenal gland. There is a round hypodense lesion seen in the right renal cortex measuring .9 cm. These probably represent hepatic and renal cysts. IMPRESSION: No evidence of a pulmonary embolus, thoracic aortic dissection or aneurysm.
[2018-12-08] MEDS: Omnipaque 350 MG/ML 100 ML BTL IJ (18:51)
--- NOTE | 2018-12-08 19:07 | DI.VRAD_ITS ---
EXAM: CT Head Without Contrast EXAM DATE/TIME: 12/08/2018 5:36 PM CLINICAL HISTORY: 73 years old, female; Signs and symptoms; Other: Confusion; Patient HX: Confusion and SOB TECHNIQUE: Axial computed tomography images of the head/brain without contrast. All CT scans at this facility use at least one of these dose optimization techniques: automated exposure control; mA and/or kV adjustment per patient size (includes targeted exams where dose is matched to clinical indication); or iterative reconstruction. Coronal and sagittal reformatted images were created and reviewed. COMPARISON: CT HEAD WITHOUT CONTRAST 04/17/2016 6:05 PM FINDINGS: There are periventricular white matter lucencies compatible with chronic microvascular ischemic disease. There is no intracranial hemorrhage. No mass effect or midline shift. The ventricles and sulci are prominent compatible with age-related involutional changes. The calvarium is intact. IMPRESSION: No acute intracranial findings. Dictated and Authenticated by: Carmine Flowers MD. Ordering:PAUL Pugh MD
--- NOTE | 2018-12-08 19:37 | DI.VRAD_ITS ---
EXAM: CT Angiography Chest With Contrast EXAM DATE/TIME: 12/08/2018 5:36 PM CLINICAL HISTORY: 73 years old, female; Signs and symptoms; Shortness of breath; Patient HX: SOB and confused TECHNIQUE: Axial computed tomographic angiography images of the chest with intravenous contrast using CT angiography protocol. All CT scans at this facility use at least one of these dose optimization techniques: automated exposure control; mA and/or kV adjustment per patient size (includes targeted exams where dose is matched to clinical indication); or iterative reconstruction. Coronal and sagittal reformatted images were created and reviewed. MIP reconstructed images were created and reviewed. CONTRAST: 72 ml of Omnipaque 350 administered intravenously. COMPARISON: CT CHEST ABD PELVIS WITH CONTRAST 05/24/2016 10:12 AM FINDINGS: No evidence of pulmonary embolism. Normal thoracic aorta without aneurysm or dissection. There is trace fluid in the pericardial recess. There is bibasilar dependent atelectasis/infiltrate. There is a calcified granuloma at the left base. No pneumothorax. There is a probable cyst in the left lobe of the liver. The left adrenal gland is prominent. No fracture. IMPRESSION: No evidence of pulmonary embolism. Dictated and Authenticated by: Carmine Flowers MD. Ordering:PAUL Pugh MD
[2018-12-08 20:17] LABS: Bilirubin Negative (Negative); Blood Trace-intact (Negative); Clarity Clear; Glucose Negative (Negative); Ketones Negative (Negative); Leukocyte Esterase Negative (Negative); Nitrite Negative (Negative); Specific Gravity <= 1.005 (1.005-1.025); Urobilinogen 0.2 EU/dL (Up TO 0.2)
[2018-12-08] MEDS: Meclizine 25 MG TAB PO (20:17)
--- NOTE | 2018-12-08 20:20 | ED.GENADUL_ITS ---
Discharge Plan Disposition Patient Disposition: HOME Condition: Good Discharge Details Chief Complaint: SOB Clinical Impression: Fatigue, Dizziness Primary Care Provider: Chapo Toribio ED Provider: Keaton Gaitan Home Meds and New Rx's Prescriptions: New meclizine 25 mg tablet 25 mg PO TID Qty: 14 RF: 0 No Action sertraline 50 mg tablet 50 mg PO DAILY Qty: 30 RF: 2 PROVENTIL HFA 18 GM HFA.AER.AD 2 puff Inhalation Q6H PRN Qty: 1 RF: 2 Metoprolol Succinate 25 MG TAB.ER.24H 25 mg PO DAILY Qty: 90 RF: 4 atorvastatin [Lipitor] 20 mg tablet 20 mg PO DAILY RF: 0 aspirin [Adult Aspirin Regimen] 81 mg tablet,delayed release (DR/EC) 81 mg PO DAILY RF: 0 naproxen sodium [Aleve] 220 mg tablet 220 mg PO BID PRN (Reason: pain) RF: 0 lisinopril 20 mg tablet 20 mg PO HS RF: 0 spironolactone 25 MG tablet 12.5 mg PO HS RF: 0 celecoxib [Celebrex] 200 mg capsule 200 mg PO BID Qty: 30 RF: 0 Discharge Instructions Instructions: Dizziness (ED), Fatigue (ED) Additional Instructions: Please take the medication as directed. Please return for your echocardiogram tomorrow. If you notice any worsening of your symptoms, or any new symptoms such as vomiting, diarrhea, fever, chills, shortness of breath, chest pain, numbness, weakness, or fainting , please return immediately to the emergency department for reevaluation. Please follow up with your primary care provider as soon as possible for reassessment and reevaluation. As always, it was a pleasure participating in your medical care today. Referrals: Chapo Toribio [Primary Care Provider] - Discharge Data Discharge Date/Time-TO BE ENTERED AT DEPARTURE: 12/08/18 20:32 Medical Decision Making This is a 73-year-old female with a past medical history of hypertension, high cholesterol, chronic cardiomyopathy, who presents today for evaluation of weakness, mild dizziness, and mild shortness of breath since a recent trip to [place]. Patient denies any associated chest pain. Physical exam demonstrates no focal neurologic deficits, the patient does have some horizontal nystagmus, and symptoms are made worse on the head impulse test. Feel the dizziness is most likely secondary to a peripheral etiology, however because of her risk factors stroke is certainly on the differential we will get a CT scan to rule this out. Additionally because of the patient's age, recent long trips, and symptoms of subjective shortness of breath in the setting of normal vital signs and pulmonary embolism is low on the differential but still present. We will get a d-dimer for further evaluation. Differential also includes generalized fatigue, thyroid condition, or mild dehydration. Patient's laboratory workup has returned, no significant abnormalities are noted. No significant white count, electrolyte abnormality, or decrease in renal function. Troponin, proBNP, and TSH are all normal, urinalysis shows no evidence of infection. Patient's d-dimer is elevated, we will get a CT scan for reevaluation. Patient will be given meclizine. She has been rehydrated with a gentle fluid bolus and is feeling slightly better. CT scan is returned and demonstrates no acute process per virtual radiology as well as no evidence of pulmonary embolism. EKG and troponin are within normal limits. The patient does have a left bundle branch block and EKG however this is consistent with all prior EKGs. The patient does have an echo scheduled for tomorrow, because of the patient's mild fatigue, I did discuss with the patient overnight observation continue telemetry with a echo in the morning, and the patient made it extremely clear that she would not be staying overnight tonight would like to be discharged home. I do feel that this is reasonable in light of the patient's unremarkable workup. I did have a long discussion with the patient regarding red flags for which to return and the patient understands. We will give meclizine for home use as I feel her dizziness is most likely from a peripheral vertigo component. I have extensively reviewed the treatment plan and discharge instructions with the patient and their family. I have addressed all patient concerns at this time. The patient and family was made aware of what symptoms to monitor for that would warrant a return to the emergency department. Discussed the plan with the patient and family, they demonstrate verbal understanding and agreement with our assessment and plan at this time. EKG 15: 55 Rate 57, SD 180, QTc 448, QRS 152, left bundle branch block, negative for SCARBOSSA criteria. No significant abnormalities. Review of multiple prior EKGs reveal identical findings. CLINICAL HISTORY: 73 years old, female; Signs and symptoms; Shortness of breath; Patient HX: SOB and confused TECHNIQUE: Axial computed tomographic angiography images of the chest with intravenous contrast using CT angiography protocol. All CT scans at this facility use at least one of these dose optimization techniques: automated exposure control; mA and/or kV adjustment per patient size (includes targeted exams where dose is matched to clinical indication); or iterative reconstruction. Coronal and sagittal reformatted images were created and reviewed. MIP reconstructed images were created and reviewed. CONTRAST: 72 ml of Omnipaque 350 administered intravenously. COMPARISON: CT CHEST ABD PELVIS WITH CONTRAST 05/24/2016 10:12 AM FINDINGS: No evidence of pulmonary embolism. Normal thoracic aorta without aneurysm or dissection. There is trace fluid in the pericardial recess. There is bibasilar dependent atelectasis/infiltrate. There is a calcified granuloma at the left base. No pneumothorax. There is a probable cyst in the left lobe of the liver. The left adrenal gland is prominent. No fracture. IMPRESSION: No evidence of pulmonary embolism. Dictated and Authenticated by: Carmine Flowers MD. Comparison: CT HEAD WITHOUT CONTRAST 04/17/2016 6:05 PM Findings: There are periventricular white matter lucencies compatible with chronic microvascular ischemic disease. There is no intracranial hemorrhage. No mass effect or midline shift. The ventricles and sulci are prominent compatible with age-related involutional changes. The calvarium is intact. Impression: No acute intracranial findings. Dictated and Authenticated by: Carmine Flowers MD. HPI General Date/Time Provider Initiated Documentation: 12/08/18 15:57 . HPI Narrative: This is a 73-year-old female with a past medical history of hypertension, high cholesterol, and a tubal ligation presents today for evaluation of mild weakness dizziness and some subjective shortness of breath. Patient states that she recently got back from a trip to [place], and for the last week she has been feeling the symptoms. In regards to the weakness and shortness of breath it appears to be at all times. Worsened with activity, or during exertion. She has no associated chest pain, arm pain, neck pain or shoulder pain. She denies any pleuritic chest pain. She denies any cough, fever, chills, hemoptysis, nausea, vomiting or diarrhea. In regards to her dizziness patient's dizziness is present at all times but notably worse when she moves her head quickly or moves her eyes quickly. She denies any room spinning sensation, states that it feels slightly different than her normal vertigo. Patient denies any recent trauma to the head, tinnitus, significant change in diet, or change. Patient denies any other modifying factors. She has no other complaints at this time. She denies any IV, illicit, or tobacco use. She denies any pertinent family history. Related Data Home Medications Medication Instructions Recorded Confirmed aspirin 81 mg tablet,delayed 81 mg PO DAILY 08/03/18 12/08/18 release atorvastatin 20 mg tablet 20 mg PO DAILY 08/03/18 12/08/18 naproxen sodium 220 mg tablet 220 mg PO BID PRN 08/03/18 12/08/18 lisinopril 20 mg PO HS 09/22/18 12/08/18 spironolactone 12.5 mg PO HS 09/22/18 12/08/18 celecoxib [Celebrex] 200 mg PO BID #30 cap 09/30/18 12/08/18 sertraline 50 mg tablet 50 mg PO DAILY #30 tab 12/04/18 12/08/18 meclizine 25 mg PO TID #14 tab 12/08/18 Previous Rx's Medication Instructions Recorded celecoxib [Celebrex] 200 mg PO BID #30 cap 09/30/18 sertraline 50 mg tablet 50 mg PO DAILY #30 tab 12/04/18 meclizine 25 mg PO TID #14 tab 12/08/18 Allergies Allergy/AdvReac Type Severity Reaction Status Date / Time No Known Allergies Allergy Verified 12/08/18 16:02 General Stated Complaint: SOB PRINCE: 2 Review of Systems Review of Systems All systems reviewed & are unremarkable except as noted in HPI and below PFSH Social History current occupational status: retired pets and animals: Yes pets and animals: dog(s) frequency: daily Smoking/Tobacco Use Status: Former Tobacco Use how long ago did patient quit smoking: quit in 1999; less than 10 pack years alcohol intake: current alcohol intake frequency: a few times a month Alcohol type: beer, wine and hard liquor substance use type: does not use Exam Narrative Exam Narrative: 1.Const: Well-nourished, Well-developed, appearing stated age 2.Eyes: PERRL, no conjunctival injection, and symmetrical lids. 3.ENT: Atraumatic external nose and ears. Dry MM. Neck: Symmetric, trachea midline, No thyromegaly. 4.CVS: +S1/S2, No murmurs or gallops. Peripheral pulses 2+ and equal in all extremities. Brisk capillary refill in all extremities. 5.RESP: Unlabored respiratory effort. Clear to auscultation bilaterally. No wheezes rales or rhonchi 6.GI: Soft, Nontender/Nondistended, No hepatosplenomegaly. No guarding or rebound. 7.MSK: Normocephalic/Atraumatic, Extremities w/o deformity or ttp No cyanosis or clubbing, Normal movement of all extremities, no significant calf tenderness or edema. 8.Skin: Warm, Dry. No rashes or lesions. 9.Neuro: mental telepathist II-XII grossly intact. Sensation grossly intact, no focal neurologic deficits. All 6 cardinal planes of vision are fully intact. No evidence of rotatory or vertical nystagmus. The patient demonstrated a normal axempt-[id number], good dexterity. There was no evidence of dysdiadochokinesia. Patient was able to ambulate without difficulty. There was no wide-based gait. Romberg, and ummq-[id number] are both normal on testing. Sensation was intact bilaterally as well as muscle strength bilaterally for all extremities. Patient was able to verbalize butter cup with no slurring, or miss pronunciation. Cerebellar function testing is normal. The patient demonstrates a normal hints exam with no findings concerning for a central event. No vertical nystagmus. Notable horizontal nystagmus. The head impulse test is negative for any significant central abnormality, but is positive signifying a peripheral event. Normal test of skew. No suggestion of a central cerebellar event. 10.Psych: (AAO) x3. Appropriate mood and affect Course Vital Signs Pulse 56 L 12/08/18 15:48 Respiratory Rate 28 H 12/08/18 15:48 Blood Pressure 119/63 12/08/18 15:48 Pulse Oximetry 98 12/08/18 15:48 Temperature 36.7 C 12/08/18 19:25 Temperature Source Temporal Artery Scan 12/08/18 19:25 Pulse 55 L 12/08/18 19:25 Pulse 56 L 12/08/18 19:18 Respiratory Rate 12 12/08/18 19:25 Respiratory Effort 12/08/18 15:57 Blood Pressure 112/53 L 12/08/18 19:25 Blood Pressure Mean 74 12/08/18 18:16 Blood Pressure Position Supine 12/08/18 15:57 Pulse Oximetry 97 12/08/18 19:25 Oxygen Delivery Method Room Air 12/08/18 19:25 Oxygen Flow Rate 0 12/08/18 19:25 Pain Level 0 12/08/18 19:25 Lab/Test Results Lab/Test Results: 12/08/18 16:41 Nose Influenza Types A,B Antigen - Final Laboratory Tests Range/Units 12/08/18 12/08/18 12/08/18 16:00 16:00 16:00 WBC (4.4-10.8) k/cumm 7.98 RBC (4.00-5.20) m/cumm 4.42 Hgb (12.0-15.5) g/dL 13.4 Hct (36.0-46.0) % 41.0 MCV (80-95) fL 92.8 MCH (27.0-33.0) pg 30.3 MCHC (32.0-36.0) g/dL 32.7 RDW (11.7-14.6) % 13.1 Plt Count (130-400) x1000/uL 195 MPV (8.0-11.0) fL 10.5 Immature Gran % 0.1 Neutrophils % 68.4 Lymphocytes % 21.8 Monocytes % 7.1 Eosinophils % 2.1 Basophils % 0.5 Absolute Neutrophils (1.2-6.7) k/cumm 5.45 Absolute Lymphocytes (1.2-3.4) k/cumm 1.74 Absolute Monocytes (0.11-0.7) k/cumm 0.57 Absolute Eosinophils (0.0-0.7) k/cumm 0.17 Absolute Basophils (0.0-0.2) k/cumm 0.04 D-Dimer (<500) ng/mlFEU 4260 H Sodium (136-145) mmol/L 141 Potassium (3.5-5.1) mmol/L 4.0 Chloride (98-107) mmol/L 105 Carbon Dioxide (21.0-32.0) mmol/L 27.2 Anion Gap (3-11) mmol/L 8.8 BUN (7-18) mg/dL 23 H Creatinine (0.55-1.02) mg/dL 0.88 Estimated GFR/1.73 m2 (mL/min/1.73m2) >= 60.00 Glucose (70-100) mg/dL 90 Calcium (8.5-10.1) mg/dL 9.1 Total Bilirubin (0.2-1.0) mg/dL 0.5 AST (15-37) U/L 13 L ALT (12-78) U/L 15 Alkaline Phosphatase (46-116) U/L 75 Troponin I (0.00-0.06) ng/mL < 0.02 NT-Pro-B Natriuret Pep ( - 299) pg/mL 200 Total Protein (6.4-8.2) g/dL 7.3 Albumin (3.4-5.0) g/dL 3.7 TSH (0.358-3.74) uIU/mL 0.53
[2018-12-08 20:23] LABS: Bacteria Rare HPF (Negative); C & S Indicated? No; Casts Negative LPF (Negative); Crystals Negative HPF (Negative); Epithelial Cells Few HPF (Negative); Mucus Negative (Negative); Other Cells Negative (Negative); WBC Negative HPF (0-5)
--- NOTE | 2018-12-12 14:13 | NUR.NOTE ---
Nursing Note: Patient called stating she lost her prescription for meclizine. I spoke with Dr. Gaitan and I called the prescription in to [facility] in [place]. Alannah Leon.
== END 2018-12-08 20:32 | disposition home or self-care (01) ==
PROVIDERS: Emergency Provider Student in an Organized Health Care Education/Training Program; PCP Family Medicine
DX: R53.83 Other fatigue (principal); R42 Dizziness and giddiness; I10 Essential (primary) hypertension
CPT/HCPCS: 36415; 71275; 80053; 87449; 93005; 96361; 99285; 70450; 81003; 81015; 83880; 84443; 84484; 85025; 85379; 93010; 99283; J3490

== ENCOUNTER 2018-12-16 01:01 | Outpatient (CLI) | payer MEDICARE, BC, SELFPAY ==
--- NOTE | 2018-12-16 14:00 | MERGE_ITS ---
*[facility]* *[facility]* [address] [place] [address] Date of study: 12/16/2018 Transthoracic Echocardiography M-mode, complete 2D, complete spectral Doppler, and color Doppler *STUDY CONCLUSIONS* Impressions: Left ventricular dysfunction, unchanged from the study of December 2017. Summary: 1. Left ventricle: The cavity size was normal. Wall thickness was increased in a pattern of mild LVH. Systolic function was moderately reduced. The estimated ejection fraction was 35-40%. Diffuse hypokinesis. Doppler parameters are consistent with high ventricular filling pressure. 2. Ventricular septum: Septal motion showed paradoxical motion consistent with Bundle Branch Block. 3. Mitral valve: There was mild regurgitation. 4. Right ventricle: The cavity size was normal. Wall thickness was normal. Systolic function was normal. 5. Pulmonary arteries: Pulmonary systolic pressure was within the normal range, in the range of 25mm Hg to 30mm Hg. *PATIENT PRESENTATION* Height: 152.4cm ((60in) ) S/D Pressure: 100 / 63 Weight: 84.8kg ((186.6lb) ) BSA: 1.94m^2 Test start time: 02:10 PM. Test stop time: 03:10 PM. ORDERING Julio Cesar Turner MD REFERRING Julio Cesar Turner MD CONSULTING Chapo Toribio PERFORMING [facility] ACCOUNTANT MACHINE PROCESSING RT Elisabeth (R)(CT), [facility] PERFORMING Juan C *PROCEDURE DATA* Procedure information: The patient was identified by two identifiers. This study was interpreted by [facility]. Pertinent images and digital data are archived for permanent storage and are available for subsequent review. Comparison was made to the study of 12/26/2017. Study status: Routine. Transthoracic echocardiography. M-mode, complete 2D, complete spectral Doppler, and color Doppler. A Transthoracic Echocardiogram was performed. Scanning was performed from the parasternal, apical, subcostal, and suprasternal notch acoustic windows. Images were obtained using an [id number] cardiac ultrasound machine. Image quality was adequate. Study completion: The patient tolerated the procedure well. There were no complications. History: PMH: Cardiomyopathy. *CARDIAC ANATOMY* Left ventricle: The cavity size was normal. Wall thickness was increased in a pattern of mild LVH. Systolic function was moderately reduced. The estimated ejection fraction was 35-40%. Diffuse hypokinesis. Doppler parameters are consistent with high ventricular filling pressure. Aortic valve: Trileaflet; normal thickness leaflets. Mobility was not restricted. Doppler: Transvalvular velocity was within the normal range. There was no stenosis. There was no significant regurgitation. VTI ratio of LVOT to aortic valve: 0.58. Valve area (VTI): 1.8cm^2. Indexed valve area (VTI): 1cm^2/m^2. Peak velocity ratio of LVOT to aortic valve: 0.48. Valve area (Vmax): 1.5cm^2. Indexed valve area (Vmax): 0.8cm^2/m^2. Mean velocity ratio of LVOT to aortic valve: 0.59. Valve area (Vmean): 1.9cm^2. Indexed valve area (Vmean): 1cm^2/m^2. Mean gradient (S): 4.5mm Hg. Peak gradient (S): 9.6mm Hg. Aorta: Aortic root: The aortic root was normal in size. Ascending aorta: The ascending aorta was normal in size. Mitral valve: Structurally normal valve. Mobility was not restricted. Doppler: Transvalvular velocity was within the normal range. There was no evidence for stenosis. There was mild regurgitation. Valve area by pressure half-time: 2.2cm^2. Indexed valve area by pressure half-time: 1.1cm^2/m^2. Left atrium: The atrium was normal in size. Right ventricle: The cavity size was normal. Wall thickness was normal. Systolic function was normal. Ventricular septum: Septal motion showed paradoxical motion consistent with Bundle Branch Block. Pulmonic valve: Structurally normal valve. Doppler: Transvalvular velocity was within the normal range. There was no evidence for stenosis. There was no significant regurgitation. Peak gradient (S): 3.9mm Hg. Tricuspid valve: Structurally normal valve. Doppler: Transvalvular velocity was within the normal range. There was no evidence for stenosis. There was mild regurgitation. Pulmonary artery: Pulmonary systolic pressure was within the normal range, in the range of 25mm Hg to 30mm Hg. Right atrium: The atrium was normal in size. Pericardium: There was no pericardial effusion. Systemic veins: Inferior vena cava: Well visualized. The vessel was stenotic and normal in size. The respirophasic diameter changes were in the normal range (greater than or equal to 50%). Baseline ECG: Bradycardia. Measurements Left ventricle Value 12/26/2017 Reference LV ID, ED, PLAX 5.0 cm 5.5 3.5 - 6.0 LV ID, ES, PLAX 3.8 cm 4.7 2.1 - 4.0 LV PW thickness, ED, PLAX 1.1 cm 0.9 LV end-diastolic volume, 92 ml 84 1-p A2C LV ejection fraction, 1-p 46 % 42 A2C LV end-diastolic volume, 75 ml 96 1-p A4C LV ejection fraction, 1-p 40 % 37 A4C LV e', lateral 0.036 m/sec LV E/e', lateral 14 LV e', medial 0.036 m/sec LV E/e', medial 14 LV e', average 0.036 m/sec LV E/e', average 14 Ventricular septum Value 12/26/2017 Reference IVS thickness, ED, PLAX 1.1 cm 1.1 LVOT Value 12/26/2017 Reference LVOT ID, A-P 2.0 cm 2.0 LVOT area 3.2 cm^2 3.2 LVOT peak velocity, S 0.74 m/sec 0.79 LVOT mean velocity, S 0.59 m/sec LVOT VTI, S 18.0 cm 19.0 LVOT peak gradient, S 2.2 mm Hg LVOT mean gradient, S 1.5 mm Hg 1.7 Stroke volume (SV), LVOT 57 ml DP Stroke index (SV/bsa), 29 ml/m^2 LVOT DP Aortic valve Value 12/26/2017 Reference Aortic valve peak 1.5 m/sec 1.7 velocity, S Aortic valve mean 1 m/sec 0.01 velocity, S Aortic valve VTI, S 31.0 cm Aortic mean gradient, S 4.5 mm Hg 6.1 Aortic peak gradient, S 9.6 mm Hg 11.7 VTI ratio, LVOT/AV 0.58 0.5 Aortic valve area, VTI 1.8 cm^2 1.7 Velocity ratio, peak, 0.48 0.46 LVOT/AV Aortic valve area, peak 1.5 cm^2 1.5 velocity Velocity ratio, mean, 0.59 LVOT/AV Aortic valve area, mean 1.9 cm^2 velocity Aortic valve area/bsa, 1 cm^2/m^2 mean velocity Aorta Value 12/26/2017 Reference Aortic root ID, ED 3.2 cm 3.1 Ascending aorta ID, A-P, S 3.3 cm 3.5 Left atrium Value 12/26/2017 Reference LA ID, A-P, ES 3.3 cm LA ID/bsa, A-P 1.7 cm/m^2 <=2.2 LA area, ES, A4C 17.8 cm^2 15.4 8.8 - 23.4 LA area, ES, A2C 17 cm^2 LA volume/bsa, ES, 1-p A4C 32 ml/m^2 25 LA volume, ES, 2-p 52 ml LA volume/bsa, ES, 2-p 27 ml/m^2 LA/aortic root ratio 1.05 1.22 Mitral valve Value 12/26/2017 Reference Mitral E-wave peak 0.5 m/sec 0.47 velocity Mitral A-wave peak 0.66 m/sec 0.74 velocity Mitral deceleration time (H) 343 ms 194 150 - 230 Mitral pressure half-time 100 ms 56 Mitral E/A ratio, peak 0.75 0.64 Mitral valve area, PHT, DP 2.2 cm^2 3.9 Pulmonary veins Value 12/26/2017 Reference Pulmonary vein peak 0.41 m/sec 0.4 velocity, S Pulmonary vein peak 0.26 m/sec 0.25 velocity, D Pulmonary vein velocity 1.55 1.62 ratio, peak, S/D Pulmonary vein A-wave 0.38 m/sec 0.34 reversal peak velocity Tricuspid valve Value 12/26/2017 Reference Tricuspid regurg peak 2.4 m/sec 2.5 velocity Tricuspid peak RV-RA 23.9 mm Hg 24.2 gradient Right atrium Value 12/26/2017 Reference RA area, ES, A4C 10.7 cm^2 12.4 8.3 - 19.5 Pulmonic valve Value 12/26/2017 Reference Pulmonic peak gradient, S 3.9 mm Hg 3.5 Legend: (L) and (H) tejal values outside specified reference range. I have personally reviewed the images and have reviewed and edited the reported findings. Electronically signed by Ken Smith 12/18/2018 07:53
== END 2018-12-16 01:21 ==
PROVIDERS: PCP Family Medicine; Visit Provider Internal Medicine Interventional Cardiology
DX: I44.7 Left bundle-branch block, unspecified (principal); I42.9 Cardiomyopathy, unspecified; I34.0 Nonrheumatic mitral (valve) insufficiency; I50.1 Left ventricular failure, unspecified
CPT/HCPCS: 93306

== ENCOUNTER → 2019-01-07 10:38 | Outpatient (BNVA) | payer MEDICARE, BC, SELFPAY | PROVIDERS: PCP Family Medicine; Referring Provider Family Medicine; Visit Provider Orthopaedic Surgery | DX: Z47.1 Aftercare following joint replacement surgery (principal); Z96.652 Presence of left artificial knee joint | CPT/HCPCS: 99211; 99213 ==

== ENCOUNTER 2019-05-31 08:44 | Outpatient (CLI) | payer MEDICARE, BC, SELFPAY ==
--- NOTE | 2019-07-05 10:40 | CER_ITS ---
DATE OF DICTATION: July 05, 2019 [employer] MONITOR REPORT MONITOR IN PLACE: May 31 - June 29, 2019 Baseline rhythm sinus. Four automatically-detected events, all occurring during sinus rhythm +/- single PVC's. One run NSVT , 3-beat duration, no symptoms. Four manually-detected events during sinus rhythm. Symptoms of tire d and fatigued, shortness of breath and passed out occurring. Symptoms of passing out occurring at 0732 hours June 09, 2019. Review of rhythm strip demonstrates sinus rhythm. [employer] Gifts Director review st rip - patient did not pass out. No atrial fibrillation. Ventricular ectopy: 2% of total beats.
== END 2019-05-31 09:04 ==
PROVIDERS: PCP Family Medicine; Visit Provider Internal Medicine Interventional Cardiology
DX: I42.9 Cardiomyopathy, unspecified (principal); R55 Syncope and collapse; I10 Essential (primary) hypertension
CPT/HCPCS: 93270; 99214; 93005; 93010

== ENCOUNTER 2019-07-05 08:40 | Outpatient (CLI) | payer MEDICARE, BC, SELFPAY | END 2019-07-05 09:00 | PROVIDERS: PCP Family Medicine; Referring Provider Family Medicine; Visit Provider Internal Medicine Interventional Cardiology | DX: R55 Syncope and collapse (principal); I49.3 Ventricular premature depolarization; I47.2 Ventricular tachycardia | CPT/HCPCS: 93228 ==

== ENCOUNTER 2019-08-23 08:02 | Outpatient (CLI) | payer MEDICARE, BC, SELFPAY | END 2019-08-23 08:22 | PROVIDERS: PCP Family Medicine; Visit Provider Internal Medicine Interventional Cardiology | DX: I42.9 Cardiomyopathy, unspecified (principal); R07.9 Chest pain, unspecified; I10 Essential (primary) hypertension | CPT/HCPCS: 99214; 93005; 93010 ==

== ENCOUNTER 2020-01-05 11:52 | Outpatient (CLI) | payer MEDICARE, BC, SELFPAY | END 2020-01-05 12:12 | PROVIDERS: PCP Family Medicine; Referring Provider Family Medicine; Visit Provider Orthopaedic Surgery | DX: G56.02 Carpal tunnel syndrome, left upper limb (principal); I10 Essential (primary) hypertension | CPT/HCPCS: 99213; 99214 ==

== ENCOUNTER 2020-01-31 09:17 | Day surgery (SDC) | payer MEDICARE, BC, SELFPAY ==
--- NOTE | 2020-01-27 12:18 | NUR.NOTE ---
Consulted with Jessie Marrufo & Mihaela Ferrer from anesthesia regarding pt. cardiac hx, documentation reviewed ok'd from anesthesia to proceed at this time. Nursing Note:
--- NOTE | 2020-01-28 14:31 | DSU.FORM ---
01/28/20 Unable to reach patient for her upcoming surgery. Messages left 01/27/20, 01/28/20 on cell phone.
[2020-01-31 09:42] VITALS: BP 110/61; PULSE 56; RESP 16; TEMP 36.5; O2SAT 95
[2020-01-31] MEDS: Lactated Ringers 1,000 ML 80 ML IV (10:19)
[2020-01-31] MEDS: ceFAZolin 1 GM/50 ML BAG IVPB (12:39)
--- NOTE | 2020-01-31 13:01 | PDOC.DSDIS_ITS ---
Discharge Plan Disposition Patient Disposition: HOME Condition: Good Discharge Details Reason For Visit: L ECTR Attending Provider: Joe Eason Primary Care Provider: Chapo Toribio Home Meds and New Rx's Prescriptions: New hydrocodone-acetaminophen 5-325 mg tablet 1 tab PO Q6H PRN (Reason: pain) Qty: 7 RF: 0 Continued metoprolol succinate 25 mg tablet extended release 24 hr 25 mg PO DAILY Qty: 90 RF: 3 meclizine 25 mg tablet 25 mg PO TID PRNRF: 0 atorvastatin [Lipitor] 20 mg tablet 20 mg PO DAILY Qty: 90 RF: 3 lisinopril 20 mg tablet 20 mg PO HS Qty: 90 RF: 3 spironolactone 25 mg tablet 12.5 mg PO HS Qty: 90 RF: 3 PROVENTIL HFA 18 GM HFA.AER.AD 2 puff Inhalation Q6H PRN Qty: 1 RF: 2 aspirin [Adult Aspirin Regimen] 81 mg tablet,delayed release (DR/EC) 81 mg PO DAILY RF: 0 naproxen sodium [Aleve] 220 mg tablet 220 mg PO BID PRN (Reason: pain) RF: 0 sertraline 50 mg tablet 50 mg PO DAILY Qty: 90 RF: 3 Discharge Instructions Additional Instructions: Elevate L hand above heart level as much as possible overnite tonite. Wiggle fingers L hand 10 times/hour when awake to prevent swelling. Your fingers L hand may stay numb for 24 hours due to nerve block I put in to decrease post-op pain. Remove splint and dressings and begin to move L wrist after 48 hours. May shower or bathe and get incision wet after you remove the dressings. Leave incision uncovered when it is dry and sealed. Take tylenol or ibuprofen for mild pain. Take hydrocodone for breakthru pain, if needed. Follow up with in 2 weeks. Referrals: Joe Eason MD [ [facility] STAFF PHYSICIAN] - (f/u in 2 weeks.) Equipment/Supplies: Splint Activity:: Activity as Tolerated Remove Dressings/Wound Care:: 48 hours Shower/Bathe:: 48 hours Diet:: As Tolerated Discharge Orders Discharge Orders: Discharge Order (Routine); Ordered 01/31/20 Ordered By: Joe Eason
[2020-01-31 13:33] VITALS: BP 103/55; PULSE 51; RESP 16; TEMP 36.1; O2SAT 97
--- NOTE | 2020-02-01 17:30 | ROE_ITS ---
DATE OF PROCEDURE: January 31, 2020 PREOPERATIVE DIAGNOSIS: Carpal tunnel syndrome, left. POSTOPERATIVE DIAGNOSIS: Same. PROCEDURE: Endoscopic carpal tunnel release on the left. ANESTHESIA: IV Regional. SURGEON: Joe Eason M.D. INDICATIONS: This is a 74-year-old white female with a several year history of carpal tunnel syndrom e. This has been documented with nerve conduction studies. She is increasingly symptomatic with no benefit from night splinting. Carpal tunnel release was recommended to alleviate her pain and numbne ss in her left hand. The patient wished to undergo the endoscopic technique of carpal tunnel release . The risks and complications of the procedure have been explained to the patient in detail preopera tively. PROCEDURE: The patient was taken to the operating room on 01/31/2020. She was placed supine on the op erating table. An IV regional anesthetic was administered to the left upper extremity. Once good an esthesia was obtained, the left hand, wrist and forearm were prepped and draped free in the usual kevin rile fashion. A transverse incision was made in line with the proximal flexion crease of the wrist. It began at th e flexor carpi radialis tendon and extended to the flexor carpi ulnaris tendon. The incision was car ried down to the fascia. Subcutaneous veins were cauterized. A distally-based fascial flap was then elevated to gain access to the carpal canal. A synovial reflector was then used to free up any soft tissue attachments to the undersurface of the volar carpal ligament. A series of obturators were th en inserted to make room for the endoscope. The Aj endoscope blade device was then inserted in the carpal canal and advanced until the distal edge of the volar carpal ligament was visualized clearly. Care was taken to position the endoscope on the ulnar side of the canal. At this point the blade w as elevated by depressing the trigger and the elevated blade was brought out from distal to proximal out through the incision, transecting the volar carpal ligament. The blade was then lowered and then the endoscope was introduced once again. I was able to confirm that the volar carpal ligament was t ransected and that the median nerve was now falling into the gap created by the volar carpal ligament transection. The endoscope was removed from the carpal canal. A subcutaneous fasciotomy was then p erformed from the incision extending proximally a couple of inches to further decompress the median n erve. A median nerve block was performed with 0.5% Marcaine with an epinephrine solution for postope rative analgesia. The wound was irrigated with saline solution. The wound edges were approximated w ith two horizontal mattress sutures of #4-0 nylon suture material. The wound was then dressed with X eroform gauze, sterile gauze 4x4's, wrapped with a Kerlix bandage and then wrapped with a 3-inch BIA bandage. She was placed in a commercial cockup wrist splint. Her IV regional anesthesia was reverse d without complications. She was discharged to the recovery room in good condition. The patient was discharged home from the Day Surgery Unit when fully recovered from her IV regional a nesthesia. She was given instructions to try to elevate her left hand above heart level as much as p ossible overnight. She is encouraged to wiggle her fingers ten times an hour while awake to prevent swelling. She is to remove the dressings and splint in 48 hours and begin to move her left wrist. A fter she removes the dressings she may shower or bathe and get her incision wet. She can leave her i ncision uncovered when it is dry and sealed. She will take Tylenol or ibuprofen for mild pain. She was given a prescription of Hydrocodone with APAP 5/325, one tablet every six hours, if needed, for b reakthrough pain. She will follow-up with me in two weeks.
== END 2020-01-31 13:55 | disposition home or self-care (01) ==
PROVIDERS: PCP Family Medicine; Visit Provider Orthopaedic Surgery
PROC: 01N54ZZ Release Median Nerve, Percutaneous Endoscopic Approach (ICD-10-PCS; CPT 29848; principal; 2020-01-31 11:15)
DX: G56.02 Carpal tunnel syndrome, left upper limb (principal)
CPT/HCPCS: 29848; J0690; J1100; J1885; J2001; J2250; J2405; J2704; L3908

== ENCOUNTER → 2020-09-05 10:54 | Outpatient (BNVA) | payer MEDICARE, BC, SELFPAY | PROVIDERS: PCP Family Medicine; Referring Provider Family Medicine; Visit Provider Internal Medicine Cardiovascular Disease | DX: I42.8 Other cardiomyopathies (principal); I44.7 Left bundle-branch block, unspecified; Z95.818 Presence of other cardiac implants and grafts; I10 Essential (primary) hypertension | CPT/HCPCS: 99214 ==

== ENCOUNTER 2020-10-31 11:30 | Outpatient (CLI) | payer MEDICARE, BC, SELFPAY ==
[2020-10-31 13:08] LABS: Anion Gap 9.4 mmol/L (3-11); BUN 22 mg/dL (7-18); CO2 22.6 mmol/L (21.0-32.0); CREATININE 0.89 mg/dL (0.55-1.02); Calcium 9.3 mg/dL (8.5-10.1); Calculated LDL 93 mg/dL (<100); Chloride 105 mmol/L (98-107); Cholesterol 202 mg/dL (<200); Glucose 122 mg/dL (74-106); HDL Cholesterol 86 mg/dL (40-60); Potassium 4.5 mmol/L (3.5-5.1); Sodium 137 mmol/L (136-145); Triglyceride 115 mg/dL (<150)
[2020-10-31 20:50] LABS: HCT 42.7 % (36.0-46.0); HGB 13.9 g/dL (11.2-15.7); MCH 30.2 pg (27.0-33.0); MCHC 32.6 % (32.0-36.0); MCV 92.8 fL (80-95); MPV 11.4 fL (8.0-11.0); Platelet Count 214 10^3/uL (130-400); RDW 12.9 % (11.7-14.6); RDW-SD 43.9 fL; WBC 8.82 10^3/uL (4.4-10.8)
[2020-10-31 21:42] LABS: Hemoglobin A1C 5.6 % (<5.7)
== END 2020-10-31 11:50 ==
PROVIDERS: PCP Family Medicine; Visit Provider Family Medicine
DX: E78.5 Hyperlipidemia, unspecified (principal); E87.1 Hypo-osmolality and hyponatremia; D64.9 Anemia, unspecified; R73.9 Hyperglycemia, unspecified
CPT/HCPCS: 36415; 80048; 80061; 85027; 83036

== ENCOUNTER 2020-11-22 19:22 | Observation (INO) | payer MEDICARE, BC, SELFPAY ==
--- NOTE | 2020-11-22 19:15 | RT.EKG_ITS ---
APPROVED REPORT Exam: Resting ECG Patient Location: E HR:75 bpm ECG Measurements Heart Rate 75 AXIS WI 229 P 57 QRSd 151 QRS -26 QT 481 T 45 QTc 513 Conclusion Sinus rhythm...normal P axis, V-rate 60- 99 Ventricular premature complex...V complex w/ short R-R interval Prolonged WI interval...WI >220, V-rate 50- 90 IVCD, consider LBBB...QRSd>120, notch/slur R I aVL V5-6
--- NOTE | 2020-11-22 19:18 | W.ED.GENAD ---
Discharge Plan Disposition Patient Disposition: [facility] INPATIENT Condition: Stable Discharge Details Clinical Impression: Closed head injury with concussion Primary Care Provider: Chapo Toribio ED Provider: Kasia Atkinson Home Meds and New Rx's Prescriptions: No Action atorvastatin [Lipitor] 20 mg tablet 20 mg PO DAILY Qty: 90 RF: 3 lisinopril 20 mg tablet 20 mg PO HS Qty: 90 RF: 3 meclizine 25 mg tablet 25 mg PO TID PRN (Reason: dizziness) Qty: 60 RF: 2 spironolactone 25 mg tablet 12.5 mg PO HS Qty: 90 RF: 3 sertraline 50 mg tablet 100 mg PO DAILY Qty: 90 RF: 3 PROVENTIL HFA 18 GM HFA.AER.AD 2 puff Inhalation Q6H PRN Qty: 1 RF: 2 aspirin [Adult Aspirin Regimen] 81 mg tablet,delayed release (DR/EC) 81 mg PO DAILY RF: 0 naproxen sodium [Aleve] 220 mg tablet 220 mg PO BID PRN (Reason: pain) RF: 0 metoprolol succinate 25 mg tablet extended release 24 hr 25 mg PO DAILY Qty: 90 RF: 3 Medical Decision Making 75-year-old female presents to the ED via EMS status post slip and fall on ice hitting the back of her head. Nausea vomiting and diarrhea began shortly thereafter. Patient is awake upon arrival, response to verbal, is complaining of dizziness. No midline C-spine tenderness appreciated with palpation, no crepitus, patient is moving all 4 extremities and following commands. She is incontinent of stool. There are contusions noted to her bilateral upper extremities. Hematoma is palpated to her occipital scalp. She does have a past medical history of left bundle branch block, cardiomyopathy, has a medtronic implanted loop recorder, hyperlipidemia, congestive heart failure, hypokalemia hypomagnesia. She does take aspirin on a daily basis. EKG was reviewed by Dr. Moira BAUGH ER attending, left bundle branch block, old EKG available for review no significant change. At this time work-up ordered including EKG, serial troponins, CBC, CMP, head CT and C-spine CT. 1937: Spoke with Alannha her daughter who reports patient lives alone, has a hx of vertigo, dementia, and has diarrhea often. Updated on plan of care and informed that we will keep her updated as we get results back. 2025: Patient returns from CT. Patient did have an episode of emesis while in CT. Thus far she has thrown up approximately 3 times since arrival. She is received another 4 mg of Zofran IV, and 10 mg of metoclopramide ordered and given at this time. Patient remains alert and oriented x3. She reports having a frontal headache. CT HEAD WO 12/08/2018 6:42 PM FINDINGS: Brain: No hyperdense findings to suggest acute intracranial hemorrhage. Age appropriate, global cerebral atrophy. Ill-defined foci of hypodensity in the periventricular white matter bilaterally consistent with chronic small vessel ischemic changes. No additional cerebral parenchymal abnormalities identified. Cerebral ventricles: Ventricular enlargement likely related to cerebral atrophy. Bones/joints: No skull fracture. Paranasal sinuses: Visualized sinuses are unremarkable. No fluid levels. Mastoid air cells: Visualized mastoid air cells are well aerated. Soft tissues: Unremarkable. IMPRESSION: 1. No acute intracranial abnormalities identified. Specifically no CT evidence of mass, hemorrhage, or acute infarction. 2. Age appropriate cerebral atrophy with chronic small vessel ischemic changes. FINDINGS: Bones/joints: A mild reversal of the normal lordotic curvature. There is mild subluxation C3 over C4 by 3 mm. Additional subluxation of C4 over C5 by 2 mm. Multiple bridging anterior osteophytes at C4- C7. No significant canal stenosis. No acute fracture or dislocation. No prevertebral soft tissue swelling. Discs/Spinal canal/Neural foramina: See Bones/joints finding. Lungs: The visualized apices are clear. Soft tissues: Unremarkable. IMPRESSION: 1. No acute fracture or dislocation. There is reversal of the normal lordotic curvature with mild multilevel anterolisthesis at C3-C5. 2. Multilevel degenerative changes in the cervical spine. 2055: Attempted to sit patient up by director of midwifery/staff midwife, no emesis but patient did c/o nausea and dry heaving. Has not received Meclizine PO yet. 2110: Will page hospitalist, Recommended admission for closed head injury with concussion and N/V/D. 2114: Spoke with Dr. Goodrich, he will come and evaluate patient. 2137: Dr. Goodrich accepts patient for admission. 2146: Call made to patient's daughter Alannah and informed of plan of care. HPI General Mode of arrival: EMS. Date/Time Provider Initiated Documentation: 11/22/20 19:26. Information obtained by: EMS. HPI Narrative: 75-year-old female presents to the ED via EMS status post slip and fall on ice hitting the back of her head. Nausea vomiting and diarrhea began shortly thereafter. Patient is awake upon arrival, response to verbal, is complaining of dizziness. No midline C-spine tenderness appreciated with palpation, no crepitus, patient is moving all 4 extremities and following commands. She is incontinent of stool. There are contusions noted to her bilateral upper extremities. Hematoma is palpated to her occipital scalp. She does have a past medical history of left bundle branch block, cardiomyopathy, has a medtronic implanted loop recorder, hyperlipidemia, congestive heart failure, hypokalemia hypomagnesia. She does take aspirin on a daily basis. Related Data Home Medications Medication Instructions Recorded Confirmed aspirin 81 mg tablet,delayed 81 mg PO DAILY 08/03/18 11/22/20 release naproxen sodium 220 mg tablet 220 mg PO BID PRN 08/03/18 11/22/20 metoprolol succinate 25 mg 25 mg PO DAILY #90 tab 06/02/20 11/22/20 tablet,extended release 24 hr atorvastatin 20 mg tablet 20 mg PO DAILY #90 tab 07/18/20 11/22/20 lisinopril 20 mg tablet 20 mg PO HS #90 tab 07/18/20 11/22/20 meclizine 25 mg tablet 25 mg PO TID PRN #60 tab 07/18/20 11/22/20 spironolactone 25 mg tablet 12.5 mg PO HS #90 tab 07/18/20 11/22/20 sertraline 50 mg tablet 100 mg PO DAILY #90 tab 10/31/20 11/22/20 Previous Rx's Medication Instructions Recorded metoprolol succinate 25 mg 25 mg PO DAILY #90 tab 06/02/20 tablet,extended release 24 hr atorvastatin 20 mg tablet 20 mg PO DAILY #90 tab 07/18/20 lisinopril 20 mg tablet 20 mg PO HS #90 tab 07/18/20 meclizine 25 mg tablet 25 mg PO TID PRN #60 tab 07/18/20 spironolactone 25 mg tablet 12.5 mg PO HS #90 tab 07/18/20 sertraline 50 mg tablet 100 mg PO DAILY #90 tab 10/31/20 Allergies Allergy/AdvReac Type Severity Reaction Status Date / Time No Known Allergies Allergy Verified 10/31/20 10:36 General PRINCE: 2 Review of Systems Narrative: Constitutional: Negative for weight loss, alert and oriented, well groomed, normal body habitus, appears comfortable. HEENT: Denies nasal discharge, sore throat, trouble swallowing. Status post slip and fall hitting the back of her head, she does have a hematoma to her occipital scalp. Is complaining of dizziness. Chest: Denies chest pain, palpitations, irregular rhythm, hypertension. Respiratory: Denies Shortness of breath, cough, hemoptysis. GI: Denies abdominal pain, constipation. Positive nausea vomiting diarrhea. : Denies dysuria, hematuria, flank pain, rectal bleeding. Neuro: Denies weakness, syncope, or facial numbness. Hematologic: Denies , intolerance to heat or cold, hair loss. [facility] Medical History Cardiomyopathy Chest pain Depressed Dizziness TORREZ (dyspnea on exertion) Heart failure 12/2017 - LVEF 35-40% (ECHO) 03/2017-LVEF 30-35% (ECHO) 12/2018 LVEF 35-40% Hyperlipidemia Hypertension Kidney stones Left bundle branch block First noted on EKG 2015 Question correlation with cardiomyopathy Left knee DJD Nocturnal hypoxemia (06/07/16) 06/07/16-SLEEP STUDY; [facility] Vertigo Surgical History Abdominal hysterectomy History of carpal tunnel surgery of right wrist Right ECTR History of renal stent Due to kidney stones; ~2012 in [place] Hx of cardiac cath No stents were place - done in [place] in 2011 Done after abnormal stress test and TORREZ Replacement of total knee joint Status post abdominal hysterectomy Status post total knee replacement Status post total left knee replacement DOS: 09/28/18 Dr. Eason Family History Mother Stroke Father Heart disease Alcohol abuse Sister Heart disease Sister Heart disease Sister No problems noted. Sister No problems noted. Brother Heart disease Hx of cardiac cath with stents Brother FH: mental illness Brother No problems noted. Son Prostate cancer Daughter Heart disease Myocardial infarction Hx of stent placed Alcohol abuse Other Crohns disease Ulcerative colitis Social History Smoking/Tobacco Use Status: Former Tobacco Use Quit Date: 12/01/08 Smoking risk assessment performed?: Yes Alcohol Intake: current Alcohol Intake frequency: a few times a month Alcohol type: beer, wine and hard liquor Drug use: Never Substance use type: does not use Pets and animals: Yes Pets and animals: dog(s) Current gender identity: female What type of physical activity do you participate in: walking Frequency: daily Do you feel safe at home: Yes Do you feel safe in your relationship?: Yes Additional Social history: Lives alone. Exam Narrative Exam Narrative: Constitutional: Alert and oriented x3. Appears stated age. Normal body habitus. Has her eyes closed, is moaning complaining of dizziness. Is incontinent of stool. Head: Normocephalic, occipital scalp hematoma palpated. Eyes: Pupils PERRLA, Red reflex noted, EOM's intact. Eyelids symmetrical without lesions, discharge, or swelling. ENT: Bilateral TM's WNL, External ear normal to inspection, no mastoid TTP, swelling, or erythema, Nasal turbinates WNL, no nasal discharge. Normal dentition, Posterior pharynx WNL, no exudate. Chest: RRR, Normal S1, S2, distal pulses intact. Resp: Lungs clear to auscultation bilaterally, no wheezes, rales, or rhonchi. GI: Positive nausea vomiting diarrhea. Incontinent of stool. Musculoskeletal: Unable to assess gait, does have some contusions noted to her bilateral upper extremities. Skin:Capillary refill less than 2 sec. Neurologic: Cranial nerves II-XII intact. Alert and oriented x 3. No nystagmus, Negative skew test. Increase dizziness with EOM's. Hematologic/Lymphatic:no lymphadenopathy.
[2020-11-22 19:21] VITALS: BP 139/68; PULSE 74; RESP 25; TEMP 36.4; O2SAT 98
[2020-11-22 19:29] VITALS: RESP 20
[2020-11-22 19:48] LABS: Abs Immature Grans 0.04 10^3/uL (0.0-0.06); Absolute Basophil Count 0.03 10^3/uL (0.0-0.2); Absolute Eosinophil Count 0.07 10^3/uL (0.0-0.7); Absolute Lymphocyte Count 1.19 10^3/uL (1.2-3.4); Absolute Monocyte Count 0.41 10^3/uL (0.1-0.8); Absolute Neutrophil Count 7.05 10^3/uL (1.2-6.7); Basophils % 0.3; Eosinophils % 0.8; HCT 36.6 % (36.0-46.0); HGB 12.3 g/dL (11.2-15.7); Immature Grans % 0.5; Lymphocytes % 13.5; MCH 30.4 pg (27.0-33.0); MCHC 33.6 % (32.0-36.0); MCV 90.4 fL (80-95); MPV 10.2 fL (8.0-11.0); Monocytes % 4.7; Neutrophils % 80.2; Nucleated RBC 0 %; Platelet Count 189 10^3/uL (130-400); RBC 4.05 10^6/uL (3.93-5.22); RDW 12.5 % (11.7-14.6); RDW-SD 41.6 fL; WBC 8.79 10^3/uL (4.4-10.8)
[2020-11-22] MEDS: Ondansetron 4 MG/2 ML VIAL IVP (19:54)
[2020-11-22 19:59] LABS: ALT 19 U/L (14-59); AST 19 U/L (15-37); Albumin 3.7 g/dL (3.4-5.0); Alkaline Phosphatase 73 U/L (46-116); Anion Gap 11.2 mmol/L (3-11); BUN 16 mg/dL (7-18); Bilirubin, Total 0.5 mg/dL (0.2-1.0); CO2 21.8 mmol/L (21.0-32.0); CREATININE 0.86 mg/dL (0.55-1.02); Calcium 8.8 mg/dL (8.5-10.1); Chloride 106 mmol/L (98-107); Glucose 125 mg/dL (74-106); Magnesium 1.7 mg/dL (1.8-2.4); Potassium 3.6 mmol/L (3.5-5.1); Sodium 139 mmol/L (136-145); Troponin I < 0.05 ng/mL (<0.06)
--- NOTE | 2020-11-22 20:10 | DI.CT_ITS ---
EXAM: CT HEAD CERVICAL SPINE WO CLINICAL HISTORY: Fall, head Injury, vomiting. TECHNIQUE: Imaging Protocol: Axial computed tomography images with coronal and sagittal reformatted images were created and reviewed COMPARISON: CT CTA BRAIN AND NECK from 04/17/[address] HEAD WO from 12/08/2018 FINDINGS: CT Head: Ventricles and Extra axial spaces: Normal in size and morphology for the patient's age. Hemorrhage: None. Cerebral parenchyma: There are areas of decreased attenuation in the white matter most consistent wit h chronic microvascular ischemic change. No acute territorial infarct. Midline shift: None. Brainstem/Cerebellum: Normal. Calvarium: Normal. Visualized Paranasal sinuses/Mastoids: Clear. Soft Tissues: Unremarkable. CT Cervical Spine: Bones: No acute fracture. There is reversal of the normal cervical lordosis. There is 3 mm of anter olisthesis of C3 on C4. There is also 2 mm of anterolisthesis of C4 on C5. Multiple osteophytes are seen in the cervical spine. Soft Tissues: Unremarkable. Lung Apices: Clear. IMPRESSION: 1. No acute intracranial process. 2. No acute fracture or subluxation in the cervical spine. 3. Reversal of the normal cervical lordosis with anterolisthesis of C3 on C4 and C4 on C5. This is u nchanged compared to the CT scan from 04/17/2016. RADIATION DOSE DELIVERED: 1,425.47mGy.cm Total DLP DATA REPOSITORY: All CT scans at this facility are submitted to the National Radiology Data Registry (NRDR) Dose Index Registry (DIR) with the [employer] ([employer]). RADIATION OPTIMIZATION: All CT scans at this facility use at least one of these dose optimization te chniques: automated exposure control; mA and/or kV adjustment per patient size (includes targeted exa ms where dose is matched to clinical indication); or iterative reconstruction.
[2020-11-22] MEDS: Metoclopramide 10 MG/2 ML VIAL IVP (20:27)
--- NOTE | 2020-11-22 20:40 | DI.VRAD_ITS ---
PROCEDURE INFORMATION: Exam: CT Head Without Contrast Exam date and time: 11/22/2020 8:11 PM Age: 75 years old Clinical indication: Injury or trauma; Fall; Blunt trauma (contusions or hematomas); Consciousness not specified; Injury date: 11/22/20; Injury details: PT fell on ice, severe dizziness, nausea and vomiting. TECHNIQUE: Imaging protocol: Computed tomography of the head without contrast. Radiation optimization: All CT scans at this facility use at least one of these dose optimization techniques: automated exposure control; mA and/or kV adjustment per patient size (includes targeted exams where dose is matched to clinical indication); or iterative reconstruction. COMPARISON: CT HEAD WO 12/08/2018 6:42 PM FINDINGS: Brain: No hyperdense findings to suggest acute intracranial hemorrhage. Age appropriate, global cerebral atrophy. Ill-defined foci of hypodensity in the periventricular white matter bilaterally consistent with chronic small vessel ischemic changes. No additional cerebral parenchymal abnormalities identified. Cerebral ventricles: Ventricular enlargement likely related to cerebral atrophy. Bones/joints: No skull fracture. Paranasal sinuses: Visualized sinuses are unremarkable. No fluid levels. Mastoid air cells: Visualized mastoid air cells are well aerated. Soft tissues: Unremarkable. IMPRESSION: 1. No acute intracranial abnormalities identified. Specifically no CT evidence of mass, hemorrhage, or acute infarction. 2. Age appropriate cerebral atrophy with chronic small vessel ischemic changes. PROCEDURE INFORMATION: Exam: CT Cervical Spine Without Contrast Exam date and time: 11/22/2020 8:11 PM Age: 75 years old Clinical indication: Injury or trauma; Fall; Blunt trauma (contusions or hematomas); Consciousness not specified; Injury date: 11/22/20; Injury details: PT fell on ice, severe dizziness, nausea and vomiting. TECHNIQUE: Imaging protocol: Computed tomography images of the cervical spine without contrast. Radiation optimization: All CT scans at this facility use at least one of these dose optimization techniques: automated exposure control; mA and/or kV adjustment per patient size (includes targeted exams where dose is matched to clinical indication); or iterative reconstruction. COMPARISON: CT HEAD WO 12/08/2018 6:42 PM FINDINGS: Bones/joints: A mild reversal of the normal lordotic curvature. There is mild subluxation C3 over C4 by 3 mm. Additional subluxation of C4 over C5 by 2 mm. Multiple bridging anterior osteophytes at C4-C7. No significant canal stenosis. No acute fracture or dislocation. No prevertebral soft tissue swelling. Discs/Spinal canal/Neural foramina: See Bones/joints finding. Lungs: The visualized apices are clear. Soft tissues: Unremarkable. IMPRESSION: 1. No acute fracture or dislocation. There is reversal of the normal lordotic curvature with mild multilevel anterolisthesis at C3-C5. 2. Multilevel degenerative changes in the cervical spine. Dictated and Authenticated by: Shantell Pozo MD. Ordering:CARRIE Pedroza MD
--- NOTE | 2020-11-22 21:37 | HPE_ITS ---
Date of service: 11/22/20 Time of Service: 21:37 Assessment and Plan Assessment and plan (1) Closed head injury with concussion: Status: Acute Assessment and plan: I think her symptoms are best subsumed under diagnosis of concussion. Seems to be improving and responding to medication. I think it best to watch overninght and see how she mobilizes in AM. Reviewed ADs and clearly and repeatedly requests DNR. History of Present Illness History of Present Illness Chief Complaint: nausea Narrative: 75 female had mechanical fall earlier this evening (was carrying bundles without holding on), struck back of head. No LOC, but has had several episodes nausea and vomiting since, along with non-vertiginous dizziness, worse with head movement\ (also noted to have some diarrhea at scene but this is not unusual for her apparently, and none since). Did report some frontal WRIGHT but this has largely resolved. In ER CT head and C-spine negative. Has received Zofran and Reglan. In ER she was noted to have aggravation in her symptoms with mobilization and so she is admitted for further management. Review of Systems All systems reviewed & are unremarkable except as noted in HPI and below [facility] Medical History Cardiomyopathy Chest pain Depressed Dizziness TORREZ (dyspnea on exertion) Heart failure 12/2017 - LVEF 35-40% (ECHO) 03/2017-LVEF 30-35% (ECHO) 12/2018 LVEF 35-40% Hyperlipidemia Hypertension Kidney stones Left bundle branch block First noted on EKG 2015 Question correlation with cardiomyopathy Left knee DJD Nocturnal hypoxemia (06/07/16) 06/07/16-SLEEP STUDY; [facility] Vertigo Surgical History Abdominal hysterectomy History of carpal tunnel surgery of right wrist Right ECTR History of renal stent Due to kidney stones; ~2012 in [place] Hx of cardiac cath No stents were place - done in [place] in 2011 Done after abnormal stress test and TORREZ Replacement of total knee joint Status post abdominal hysterectomy Status post total knee replacement Status post total left knee replacement DOS: 09/28/18 Dr. Eason Family History Mother Stroke Father Heart disease Alcohol abuse Sister Heart disease Sister Heart disease Sister No problems noted. Sister No problems noted. Brother Heart disease Hx of cardiac cath with stents Brother FH: mental illness Brother No problems noted. Son Prostate cancer Daughter Heart disease Myocardial infarction Hx of stent placed Alcohol abuse Other Crohns disease Ulcerative colitis Social History Smoking/Tobacco Use Status: Former Tobacco Use Quit Date: 12/01/08 Smoking risk assessment performed?: Yes Alcohol Intake: current Alcohol Intake frequency: a few times a month Alcohol type: beer, wine and hard liquor Drug use: Never Substance use type: does not use Pets and animals: Yes Pets and animals: dog(s) Current gender identity: female What type of physical activity do you participate in: walking Frequency: daily Do you feel safe at home: Yes Do you feel safe in your relationship?: Yes Additional Social history: Lives alone. Meds Home Medications and Allergies Home Medications Medication Instructions Recorded Confirmed Type Proventil Hfa 2 puff INHALATION Q6H PRN #1 04/21/18 01/31/20 Clinic inhaler aspirin 81 mg tablet,delayed 81 mg PO DAILY 08/03/18 10/31/20 History release naproxen sodium 220 mg tablet 220 mg PO BID PRN 08/03/18 10/31/20 History metoprolol succinate 25 mg 25 mg PO DAILY #90 tab 06/02/20 10/31/20 Rx tablet,extended release 24 hr atorvastatin 20 mg tablet 20 mg PO DAILY #90 tab 07/18/20 10/31/20 Rx lisinopril 20 mg tablet 20 mg PO HS #90 tab 07/18/20 10/31/20 Rx meclizine 25 mg tablet 25 mg PO TID PRN #60 tab 07/18/20 10/31/20 Rx spironolactone 25 mg tablet 12.5 mg PO HS #90 tab 07/18/20 10/31/20 Rx sertraline 50 mg tablet 100 mg PO DAILY #90 tab 10/31/20 10/31/20 Rx Allergies Allergy/AdvReac Type Severity Reaction Status Date / Time No Known Allergies Allergy Verified 10/31/20 10:36 Exam Narrative Exam Narrative: 139/68, 74, 36.8, 20, 998% RA. HEENT atraumatic (note that occipital hematoma was reported in ER but I find none). neck supple, nontender; lungs clear; heart RRR; abdomen soft and NT; extremities aged ecchymosis proximal LUE, nontender, no other bruising noted. Neuro Ox3, PERRL, EOMI, no facial asymmetry, moves all 4s Results Labs Result diagrams: 11/22/20 19:33 11/22/20 19:33 Labs: Laboratory Results - last 24 hr 11/22/20 12 19:33 19:33 WBC 8.79 RBC 4.05 Hgb 12.3 Hct 36.6 MCV 90.4 MCH 30.4 MCHC 33.6 RDW 12.5 Plt Count 189 MPV 10.2 Immature Gran % 0.5 Neutrophils % 80.2 Lymphocytes % 13.5 Monocytes % 4.7 Eosinophils % 0.8 Basophils % 0.3 Nucleated RBC % 0 Absolute Neutrophils 7.05 H Absolute Lymphocytes 1.19 L Absolute Monocytes 0.41 Absolute Eosinophils 0.07 Absolute Basophils 0.03 Sodium 139 Potassium 3.6 Chloride 106 Carbon Dioxide 21.8 Anion Gap 11.2 H BUN 16 Creatinine 0.86 Estimated GFR/1.73 m2 >= 60.00 Glucose 125 H Calcium 8.8 Magnesium 1.7 L Total Bilirubin 0.5 AST 19 ALT 19 Alkaline Phosphatase 73 Troponin I < 0.05 Total Protein 7.0 Albumin 3.7 Last Vital Signs Temp 36.4 C L 11/22/20 19:21 Pulse 74 11/22/20 19:21 Resp 20 11/22/20 19:29 BP 139/68 11/22/20 19:21 Pulse Ox 98 11/22/20 19:21 COVID-19 Screening Have you, or household traveled for leisure in last 14 days?: No Had IN PERSON contact w/suspected or confirmed C-19 person: No
[2020-11-22 23:03] VITALS: BP 139/68; PULSE 74; RESP 20; TEMP 36.4; O2SAT 98
[2020-11-22 23:12] VITALS: BP 114/74; PULSE 71; RESP 17; TEMP 35.9; O2SAT 96
[2020-11-23] MEDS: Meclizine 25 MG TAB PO (00:25)
[2020-11-23] MEDS: Normal Saline Flush 10 ML SYR IVP (00:25)
[2020-11-23] MEDS: Lactated Ringers 1,000 ML 75 ML IV (00:29)
[2020-11-23 03:28] VITALS: BP 120/72; PULSE 69; RESP 17; TEMP 36.7; O2SAT 96
[2020-11-23 07:05] VITALS: BP 104/65; PULSE 70; RESP 18; TEMP 36.4; O2SAT 97
--- NOTE | 2020-11-23 09:17 | IN_ITS ---
Date of service: 11/23/20 Time of Service: 09:17 PT Notes Visit Reasons: CONCUSSION Physical Therapy Inpatient Initial Evaluation Date: 11/23/2020 Referring Doctor: Marian Graham MD PT Orders: PT CONSULT: Limited ability Precautions: Fall. Standard. Activity as tolerated. Patient Profile/Admitting Diagnosis: Rosemarie is a 75-year-old female who presented to the ED on 11/22/2020 with chief complaints of dizziness and frontal headache accompanied with nausea, vomiting, and diarrhea. Patient reportedly slipped and fall while attempting to get into the house through her garage carrying grocery bags with both hands. Patient is diagnosed with closed head injury with concussion in is admitted for symptom monitoring. PMHX: Medical History Cardiomyopathy Chest pain Depressed Dizziness TORREZ (dyspnea on exertion) Heart failure 12/2017 - LVEF 35-40% (ECHO) 03/2017-LVEF 30-35% (ECHO) 12/2018 LVEF 35-40% Hyperlipidemia Hypertension Kidney stones Left bundle branch block First noted on EKG 2015 Question correlation with cardiomyopathy Left knee DJD Nocturnal hypoxemia (06/07/16) 06/07/16-SLEEP STUDY; [facility] Surgical History Abdominal hysterectomy History of carpal tunnel surgery of right wrist Right ECTR History of renal stent Due to kidney stones; ~2012 in [place] Hx of cardiac cath No stents were place - done in [place] in 2011 Done after abnormal stress test and TORREZ Replacement of total knee joint Status post abdominal hysterectomy Status post total knee replacement Status post total left knee replacement Removed DOS: 09/28/18 Dr. Eason Social History/Home Situation: Lives alone in a private home with 3 steps to enter with bilateral rails. Has a dog named Cullen. Has had 3 falls in the past year. Equipment Owned/DME: None Subjective: Reports that she is a week because she has not had any meals since she came in. Nurse Shanice indicated that she has been made n.p.o. since admission to closely monitor her condition and that said order was reversed and the patient will be receiving her lunch for today. Patient continues to report frontal headache but of lesser intensity as yesterday. Admits that she is shaky but then does not think that she needs an assistive device. Objective: General Observation: Supine in bed. IV in the right brachium. Mental Status: Alert and oriented as to person, place, and time. Able to follow single step commands. Pain: Frontal headache at 3?4/10 ROM: Right Upper Extremity: Shoulder Flexion WFL. Shoulder abduction WFL. Elbow flexion WFL. Wrist flexion WFL. Opening and closing of hand WFL. Left Upper Extremity: Shoulder Flexion WFL. Shoulder abduction WFL. Elbow flexion WFL. Wrist flexion WFL. Opening and closing of hand WFL. Right Lower Extremity: Hip flexion WFL. Hip abduction WFL. Knee flexion WFL. Ankle dorsiflexion WFL. Ankle plantarflexion WFL. Left Lower Extremity: Hip flexion WFL. Hip abduction WFL. Knee flexion WFL. Ankle dorsiflexion WFL. Ankle plantarflexion WFL. Strength: Right Upper Extremity: Shoulder flexors 4/5. Shoulder abductors 4/5. Elbow flexors 4/5. Elbow extensors 4/5. Political Science Professor strong. Left Upper Extremity: Shoulder flexors 4/5. Shoulder abductors 4/5. Elbow flexors 4/5. Elbow extensors 4/5. Political Science Professor strong. Right Lower Extremity: Hip flexors 4/5. Hip abductors 4/5. Knee flexors 4/5. Knee extensors 4/5. Ankle dorsiflexors 4/5. Ankle plantarflexors 4/5. Left Lower Extremity: Hip flexors 4/5. Hip abductors 4/5. Knee flexors 4/5. Knee extensors 4/5. Ankle dorsiflexors 4/5. Ankle plantarflexors 4/5. Sensation: Intact as to pain and pressure on bilateral lower extremities. Bed Mobility/Transfers: Rolling SBA Supine to sit SBA Sit to stand contact guard assist Stand to sit contact-guard assist Bed to chair contact-guard assist Chair to bed contact-guard assist Gait: Guided through level surface ambulation of 250 feet using a front wheeled walker with standby assist. Appeared much more stable compared to using a single-point cane. Balance: Static Sitting: Normal Dynamic Sitting: Normal Static Standing: Fair Dynamic Standing: Fair Special Tests: Mobility Limitations Standardized Measure [facility] 6 clicks Basic Mobility Inpatient Short Form: Raw Score: 21 CMS Score: 29% deficit 4-stage balance test: Patient was only able to maintain feet together for 10 seconds but was unable to do the same with semitandem, full tandem, and 1-legged stance signifying risk for falls. Informed Consent/Education: Patient instructed in purpose of PT consult and plan of care. Assessment: Rosemarie demonstrates functional mobility decline requiring the use of a front wheeled walker for maximize independence and reduced fall risk for all transfer and ambulation task performance, impairment with balance, difficulty with walking without an assistive device, and decreased activity tolerance due to admitting diagnosis and co-morbidities. Patient presents with clinical signs and symptoms consistent with current/admitting diagnoses that have resulted to mobility limitations, gait instability, generalized weakness, and impairment of motor control as demonstrated by the following impairment level findings: 1. Decreased strength to BUE/LE []major muscle groups 2. Impaired standing balance 3. Impaired activity tolerance Impairments are contributing to the following functional limitations: 1. Inability to safely ambulate without assistive device 2. Increase completion time for mobility ADL performance 3. Increased fall risk 4. Inability to negotiate steps alone safely Patient is assessed as a 64080 moderate complexity based on the following: History: 75-year-old female with impairment level findings, functional limitations, and past medical history as indicated above Examination: Demonstrable impairment in strength, balance, and mobility level with underlying impairments and functional limitations as documented above Presentation:Evolving Decision Makin moderate complexity Goals: Goals X1 week 1. Supine-Sit independent 2. Sit-Supine independent 3. Sit-Stand independent 4. Stand-Sit independent 5. Bed-Chair independent 6. Chair-Bed independent 7. Independent gait on level surface with use of front wheeled walker for at least 300 feet without report of pain nor dyspnea 8. Independent stair negotiation while holding onto bilateral rails for at least 5 steps without report of pain nor dyspnea 9. Independent with home exercise program 10. Good static and dynamic standing balance/tolerance Plan of Care/Treatment Plan: 1-2x/day, 7 days/week x 1 week. Plan of care has been reviewed with the RAIL TRACK LAYER providing the service under Physical Therapy direction. Initiate Physical Therapy intervention for strengthening, bed mobility, transfers, gait, stairs, balance training, use of assistive device. DISCHARGE RECOMMENDATIONS: Rosemarie will need the use of a front wheeled walker for all mobility ADL performance to maximize safety. Patient will benefit from home health PT services in order to progress mobility level using least restrictive assistive ambulatory device, assess home safety, identify additional equipment needs, and establish a functional maintenance program that will increase ability of patient to remain at home. TREATMENT CODE/TIME: 47981 x 30 minutes, 9753 0 x 23 minutes beginning at 9:17 AM. Thank you for the opportunity to participate in the care of this patient. Neetu Davalos PT, DPT, CLT [facility] [place], [place]
[2020-11-23] MEDS: MAGNESIUM SULFATE 2 GM/50 ML BAG IVPB (09:19)
--- NOTE | 2020-11-23 11:41 | DSE_ITS ---
Date of service: 11/23/20 Time of Service: 11:41 DS: Diagnosis Discharge Diagnosis (1) Closed head injury with concussion: Status: Acute Discharge Plan Disposition Patient Disposition: HOME Condition: Stable Discharge Details Reason For Visit: CONCUSSION Admit Date/Time: 11/22/20 21:50 Admit Provider: Massimo Goodrich Attending Provider: Massimo Goodrich Primary Care Provider: Chapo Toribio Hospital Course Hospital Course: This is a 75 year old female with a history of vertigo, who sustained a mechanical fall yesterday with a closed head injury. Head and cspine CT are negative. she was admitted to observation and has remained stable. she reports her symptoms are improved and she feels more at her baseline. her diet is advan magalys which she is tolerating well. She was evaluated by physical therapy and they feel she could benefit from some outpatient PT for her vertigo and gait stability. She is being discharged home with no medication changes. she will call her pcp for f/u appointment and return sooner for new or worsening symptoms. discussed with Dr Graham [place] Meds and New Rx's Prescriptions: Continued atorvastatin [Lipitor] 20 mg tablet 20 mg PO DAILY Qty: 90 RF: 3 lisinopril 20 mg tablet 20 mg PO HS Qty: 90 RF: 3 meclizine 25 mg tablet 25 mg PO TID PRN (Reason: dizziness) Qty: 60 RF: 2 spironolactone 25 mg tablet 12.5 mg PO HS Qty: 90 RF: 3 sertraline 50 mg tablet 100 mg PO DAILY Qty: 90 RF: 3 PROVENTIL HFA 18 GM HFA.AER.AD 2 puff Inhalation Q6H PRN Qty: 1 RF: 2 aspirin [Adult Aspirin Regimen] 81 mg tablet,delayed release (DR/EC) 81 mg PO DAILY RF: 0 naproxen sodium [Aleve] 220 mg tablet 220 mg PO BID PRN (Reason: pain) RF: 0 metoprolol succinate 25 mg tablet extended release 24 hr 25 mg PO DAILY Qty: 90 RF: 3 Discharge Instructions Instructions: Head Injury (DC) Stand Alone Forms: Nursing Discharge Form Referrals: Chapo Toribio [Primary Care Provider] - 12/06/20 10:40 am [facility]OTHER] - (outpatient PT) Activity:: Activity as Tolerated Equipment/Supplies:: No Equipment Needed Diet:: As Tolerated Discharge Orders Discharge Orders: Discharge Order (Routine); Ordered 11/23/20 Ordered By: Theodora Parekh DS: Summary Status at Discharge Functional status at discharge: independent ambulation Overall status at discharge: patient is progressing back to baseline Mental Status: mental status grossly normal Speech and Movement: speech and movement normal Mood: congruent mood Affect: normal affect Exam Const General: cooperative, healthy appearing and comfortable Nutritional Appearance: average body habitus Orientation: alert, awake and oriented x3 HENMT Head: normal to inspection, normocephalic and atraumatic Mouth: oral mucosae normal Neck Neck: normal visual inspection, full ROM and nontender Resp Effort & Inspection: normal respiratory effort and able to speak in complete sentences Auscultation: clear to auscultation bilaterally Cardio Rate: regular rate Rhythm: regular rhythm GI Inspection: normal to inspection Palpation: soft Auscultation: normal bowel sounds Skin General skin exam: no rashes or lesions noted Neuro General: patient alert, patient awake and patient oriented x3 Cognition: normal cognition Speech: speech normal Motor: muscle tone normal throughout Sensory Exam: no sensory deficits noted Extrem General: normal to inspection and full ROM Psych Mental Status: mental status grossly normal Speech and Movement: speech and movement normal Mood: congruent mood Affect: normal affect DS: Data Vitals/I&O Vitals and I&O: Vital Signs Temperature 36.4 C L 11/23/20 07:05 Temperature Source Tympanic 11/23/20 07:05 Pulse 70 11/23/20 07:05 Pulse Rhythm Regular 11/23/20 11:01 Respiratory Rate 18 11/23/20 07:05 Respiratory Effort 11/23/20 11:01 Respiratory Depth Normal 11/23/20 11:01 Respiratory Pattern Normal 11/23/20 11:01 Blood Pressure 104/65 11/23/20 07:05 Blood Pressure Position Supine 11/22/20 19:21 Pulse Oximetry 97 11/23/20 07:05 Oxygen Delivery Method Room Air 11/23/20 07:05 Oxygen Flow Rate 0 11/23/20 07:05 Pain Level 0 11/23/20 07:05 Intake & Output 11/22/20 11/22/20 11/23/20 11:59 23:59 11:59 Intake Total 250 / 250 Output Total 950 / 950 Balance -700 / -700 Weight 87.3 kg Intake: Oral 250 / 250 Output: Urine 950 / 950 Other: Urine Color Yellow Urine Appearance Clear Clear Voiding Methods Bedside Commode Data Completed and Pending Labs on day of discharge: Labs from last 24 hours 11/22/20 11/22/20 11/22/20 22:15 21:41 19:33 WBC 8.79 RBC 4.05 Hgb 12.3 Hct 36.6 MCV 90.4 MCH 30.4 MCHC 33.6 RDW 12.5 Plt Count 189 MPV 10.2 Immature Gran % 0.5 Neutrophils % 80.2 Lymphocytes % 13.5 Monocytes % 4.7 Eosinophils % 0.8 Basophils % 0.3 Nucleated RBC % 0 Absolute Neutrophils 7.05 H Absolute Lymphocytes 1.19 L Absolute Monocytes 0.41 Absolute Eosinophils 0.07 Absolute Basophils 0.03 Sodium Potassium Chloride Carbon Dioxide Anion Gap BUN Creatinine Estimated GFR/1.73 m2 Glucose Calcium Magnesium Total Bilirubin AST ALT Alkaline Phosphatase Troponin I Cancelled Total Protein Albumin SARS-CoV-2 (PCR) Pending Nasopharyn COVID-19 PCR Pending Ref Test Perform Site Pending 11/22/20 19:33 WBC RBC Hgb Hct MCV MCH MCHC RDW Plt Count MPV Immature Gran % Neutrophils % Lymphocytes % Monocytes % Eosinophils % Basophils % Nucleated RBC % Absolute Neutrophils Absolute Lymphocytes Absolute Monocytes Absolute Eosinophils Absolute Basophils Sodium 139 Potassium 3.6 Chloride 106 Carbon Dioxide 21.8 Anion Gap 11.2 H BUN 16 Creatinine 0.86 Estimated GFR/1.73 m2 >= 60.00 Glucose 125 H Calcium 8.8 Magnesium 1.7 L Total Bilirubin 0.5 AST 19 ALT 19 Alkaline Phosphatase 73 Troponin I < 0.05 Total Protein 7.0 Albumin 3.7 SARS-CoV-2 (PCR) Nasopharyn COVID-19 PCR Ref Test Perform Site [facility] Medical History Cardiomyopathy Chest pain Depressed Dizziness TORREZ (dyspnea on exertion) Heart failure 12/2017 - LVEF 35-40% (ECHO) 03/2017-LVEF 30-35% (ECHO) 12/2018 LVEF 35-40% Hyperlipidemia Hypertension Kidney stones Left bundle branch block First noted on EKG 2015 Question correlation with cardiomyopathy Left knee DJD Nocturnal hypoxemia (06/07/16) 06/07/16-SLEEP STUDY; [facility] Vertigo Surgical History Abdominal hysterectomy History of carpal tunnel surgery of right wrist Right ECTR History of renal stent Due to kidney stones; ~2012 in [place] Hx of cardiac cath No stents were place - done in [place] in 2011 Done after abnormal stress test and TORREZ Replacement of total knee joint Status post abdominal hysterectomy Status post total knee replacement Status post total left knee replacement DOS: 09/28/18 Dr. Eason Family History Mother Stroke Father Heart disease Alcohol abuse Sister Heart disease Sister Heart disease Sister No problems noted. Sister No problems noted. Brother Heart disease Hx of cardiac cath with stents Brother FH: mental illness Brother No problems noted. Son Prostate cancer Daughter Heart disease Myocardial infarction Hx of stent placed Alcohol abuse Other Crohns disease Ulcerative colitis Social History Smoking/Tobacco Use Status: Former Tobacco Use Quit Date: 12/01/08 Smoking risk assessment performed?: Yes Alcohol Intake: current Alcohol Intake frequency: a few times a month Alcohol type: beer, wine and hard liquor Drug use: Never Substance use type: does not use Pets and animals: Yes Pets and animals: dog(s) Current gender identity: female What type of physical activity do you participate in: walking Frequency: daily Do you feel safe at home: Yes Do you feel safe in your relationship?: Yes Additional Social history: Lives alone.
[2020-11-23 11:54] VITALS: BP 120/75; PULSE 71; RESP 17; TEMP 36.6; O2SAT 98
--- NOTE | 2020-11-23 15:33 | CHAPLAIN ---
Rosemarie thanked me for checking in with her and said she appreciated the visit, but believes she was set to be discharged as Care Management was calling her daughter to provide a ride for Rosemarie.
[2020-11-24 12:23] LABS: COVID-19 RT-PCR UVMMC Result Negative (Negative)
--- NOTE | 2020-11-27 11:48 | PT.INDS ---
Date of service: 11/27/20 Time of Service: 11:48 PT Notes Visit Reasons: CONCUSSION Physical Therapy Inpatient Discharge Summary Date: 11/27/2020 Date of service: 11/27/2020 only This is a clinical summary of care provided on the duration of dates listed above. No charge was made in the completion of this documentation. Referring Doctor: Marian Graham MD PT Orders: PT CONSULT: Limited ability Precautions: Fall. Standard. Activity as tolerated. Patient Profile/Admitting Diagnosis: Rosemarie is a 75-year-old female who presented to the ED on 11/22/2020 with chief complaints of dizziness and frontal headache accompanied with nausea, vomiting, and diarrhea. Patient reportedly slipped and fall while attempting to get into the house through her garage carrying grocery bags with both hands. Patient is diagnosed with closed head injury with concussion in is admitted for symptom monitoring. PMHX: Medical History Cardiomyopathy Chest pain Depressed Dizziness TORREZ (dyspnea on exertion) Heart failure 12/2017 - LVEF 35-40% (ECHO) 03/2017-LVEF 30-35% (ECHO) 12/2018 LVEF 35-40% Hyperlipidemia Hypertension Kidney stones Left bundle branch block First noted on EKG 2015 Question correlation with cardiomyopathy Left knee DJD Nocturnal hypoxemia (06/07/16) 06/07/16-SLEEP STUDY; [facility] Vertigo Surgical History Abdominal hysterectomy History of carpal tunnel surgery of right wrist Right ECTR History of renal stent Due to kidney stones; ~2012 in [place] Hx of cardiac cath No stents were place - done in [place] in 2011 Done after abnormal stress test and TORREZ Replacement of total knee joint Status post abdominal hysterectomy Status post total knee replacement Status post total left knee replacement Removed DOS: 09/28/18 Dr. Eason Social History/Home Situation: Lives alone in a private home with 3 steps to enter with bilateral rails. Has a dog named Cullen. Has had 3 falls in the past year. Equipment Owned/DME: None Subjective: NT. See most recent OPTOMETRIST PRESIDENT/PRACTICE OWNER notes. Objective: General Observation: NT. See most recent OPTOMETRIST PRESIDENT/PRACTICE OWNER notes. Mental Status: NT. See most recent OPTOMETRIST PRESIDENT/PRACTICE OWNER notes. Pain: NT. See most recent OPTOMETRIST PRESIDENT/PRACTICE OWNER notes. ROM: Right Upper Extremity: Shoulder Flexion WFL. Shoulder abduction WFL. Elbow flexion WFL. Wrist flexion WFL. Opening and closing of hand WFL. Left Upper Extremity: Shoulder Flexion WFL. Shoulder abduction WFL. Elbow flexion WFL. Wrist flexion WFL. Opening and closing of hand WFL. Right Lower Extremity: Hip flexion WFL. Hip abduction WFL. Knee flexion WFL. Ankle dorsiflexion WFL. Ankle plantarflexion WFL. Left Lower Extremity: Hip flexion WFL. Hip abduction WFL. Knee flexion WFL. Ankle dorsiflexion WFL. Ankle plantarflexion WFL. Strength: Right Upper Extremity: Shoulder flexors 4/5. Shoulder abductors 4/5. Elbow flexors 4/5. Elbow extensors 4/5. Electrical Design Technician strong. Left Upper Extremity: Shoulder flexors 4/5. Shoulder abductors 4/5. Elbow flexors 4/5. Elbow extensors 4/5. Electrical Design Technician strong. Right Lower Extremity: Hip flexors 4/5. Hip abductors 4/5. Knee flexors 4/5. Knee extensors 4/5. Ankle dorsiflexors 4/5. Ankle plantarflexors 4/5. Left Lower Extremity: Hip flexors 4/5. Hip abductors 4/5. Knee flexors 4/5. Knee extensors 4/5. Ankle dorsiflexors 4/5. Ankle plantarflexors 4/5. Sensation: Intact as to pain and pressure on bilateral lower extremities. Bed Mobility/Transfers: Rolling SBA Supine to sit SBA Sit to stand contact guard assist Stand to sit contact-guard assist Bed to chair contact-guard assist Chair to bed contact-guard assist Gait: Guided through level surface ambulation of 250 feet using a front wheeled walker with standby assist. Appeared much more stable compared to using a single-point cane. Balance: Static Sitting: Normal Dynamic Sitting: Normal Static Standing: Fair Dynamic Standing: Fair Special Tests: Mobility Limitations Standardized Measure [facility] 6 clicks Basic Mobility Inpatient Short Form: Raw Score: 21 CMS Score: 29% deficit 4-stage balance test: Patient was only able to maintain feet together for 10 seconds but was unable to do the same with semitandem, full tandem, and 1-legged stance signifying risk for falls. Assessment: Rosemarie demonstrates functional mobility decline requiring the use of a front wheeled walker for maximize independence and reduced fall risk for all transfer and ambulation task performance, impairment with balance, difficulty with walking without an assistive device, and decreased activity tolerance due to admitting diagnosis and co-morbidities. Patient continues to presentswith clinical signs and symptoms consistent with current/admitting diagnoses that have resulted to mobility limitations, gait instability, generalized weakness, and impairment of motor control as demonstrated by the following impairment level findings: 1. Decreased strength to BUE/LE []major muscle groups 2. Impaired standing balance 3. Impaired activity tolerance Impairments are doing to contribute to the following functional limitations: 1. Inability to safely ambulate without assistive device 2. Increase completion time for mobility ADL performance 3. Increased fall risk 4. Inability to negotiate steps alone safely Goals: Goals X1 week 1. Supine-Sit independent NOT MET 2. Sit-Supine independent NOT MET 3. Sit-Stand independent NOT MET 4. Stand-Sit independent NOT MET 5. Bed-Chair independent NOT MET 6. Chair-Bed independent NOT MET 7. Independent gait on level surface with use of front wheeled walker for at least 300 feet without report of pain nor dyspnea NOT MET 8. Independent stair negotiation while holding onto bilateral rails for at least 5 steps without report of pain nor dyspnea NOT MET 9. Independent with home exercise program NOT MET 10. Good static and dynamic standing balance/tolerance NOT MET DISCHARGE RECOMMENDATIONS: Rosemarie will need the use of a front wheeled walker for all mobility ADL performance to maximize safety. Patient will benefit from home health PT services in order to progress mobility level using least restrictive assistive ambulatory device, assess home safety, identify additional equipment needs, and establish a functional maintenance program that will increase ability of patient to remain at home. TREATMENT CODE/TIME: [place] Thank you for the opportunity to participate in the care of this patient. Neetu Davalos PT, DPT, CLT [facility] [place], [place]
== END 2020-11-23 13:25 | disposition home or self-care (01) ==
LOC: ER 22:55 → MS 22:57
PROVIDERS: Admitting Provider General Practice; Emergency Provider Registered Nurse Emergency; PCP Family Medicine; Visit Provider General Practice
DX: S06.0X9A Concussion with loss of consciousness of unspecified duration, initial encounter (principal); W00.0XXA Fall on same level due to ice and snow, initial encounter; R11.2 Nausea with vomiting, unspecified; R19.7 Diarrhea, unspecified; S00.03XA Contusion of scalp, initial encounter; S40.022A Contusion of left upper arm, initial encounter; S40.021A Contusion of right upper arm, initial encounter; I44.7 Left bundle-branch block, unspecified; I42.9 Cardiomyopathy, unspecified; E78.5 Hyperlipidemia, unspecified; I50.9 Heart failure, unspecified; Z79.82 Long term (current) use of aspirin; F03.90 Unspecified dementia, unspecified severity, without behavioral disturbance, psychotic disturbance, mood disturbance, and anxiety; F32.9 Major depressive disorder, single episode, unspecified; R42 Dizziness and giddiness; I11.0 Hypertensive heart disease with heart failure; Z66 Do not resuscitate
CPT/HCPCS: 36415; 80053; 93005; 96374; 96375; 97162; 97530; 99217; 99222; 99285; U0003; 70450; 72125; 83735; 84484; 85025; 93010; 99219; G0378; J2405; J2765

== ENCOUNTER → 2021-05-24 10:50 | Outpatient (CLI) | payer MEDICARE, SELFPAY ==
--- NOTE | 2021-05-24 13:00 | DI.RAD_ITS ---
Exam(s) XR KNEE RT 3V AP,LAT,FREDY EXAM: XR KNEE RT 3V AP,LAT,FREDY CLINICAL HISTORY: knee pain, right, hx replacement, M25.561. TECHNIQUE: 2D digital imaging was performed. COMPARISON: CR KNEES BILAT AP STANDING LATS from 06/11/2016 FINDINGS: There appears to be stable position and alignment of the components of the right knee prosthesis. No fracture or loosening evident. No radiographic evidence of osteomyelitis. Some dystrophic calcific ation around the knee appears unchanged IMPRESSION: DATA REPOSITORY: RADIATION DOSE DELIVERED:
== END ==
PROVIDERS: PCP Family Medicine; Visit Provider Physician Assistant
DX: M25.561 Pain in right knee (principal)
CPT/HCPCS: 73562

== ENCOUNTER 2021-05-24 17:34 | Outpatient (REF) | payer MEDICARE, SELFPAY ==
[2021-05-28 10:51] LABS: Lyme Ab w Rflx to Lyme Confirm Negative (Negative)
[2021-05-29 02:54] LABS: Anaplasma phagocytophilum Negative (Negative); B. miyamotoi PCR Negative (Negative); Babesia divergens/MO-1 Negative (Negative); Babesia duncani Negative (Negative); Babesia microti Negative (Negative); Ehrlichia chaffeensis Negative (Negative); Ehrlichia ewingii/canis Negative (Negative); Ehrlichia muris eauclairensis Negative (Negative)
== END 2021-05-24 17:35 | disposition home or self-care (01) ==
LOC: LBN 17:34
PROVIDERS: PCP Family Medicine; Visit Provider Physician Assistant
DX: M25.561 Pain in right knee
CPT/HCPCS: 87798; 86618

== ENCOUNTER 2021-06-13 11:18 | Outpatient (CLI) | payer MEDICARE, SELFPAY ==
[2021-06-13 12:24] LABS: Anion Gap 13.2 mmol/L (3-11); BUN 21 mg/dL (7-18); CO2 23.8 mmol/L (21.0-32.0); CREATININE 0.8 mg/dL (0.55-1.02); Calcium 9.1 mg/dL (8.5-10.1); Chloride 106 mmol/L (98-107); Glucose 116 mg/dL (74-106); Potassium 4.2 mmol/L (3.5-5.1); Sodium 143 mmol/L (136-145)
== END 2021-06-13 11:19 | disposition home or self-care (01) ==
LOC: LOS 11:18
PROVIDERS: PCP Family Medicine; Referring Provider Family Medicine; Visit Provider Family Medicine
DX: E87.1 Hypo-osmolality and hyponatremia (principal); E83.42 Hypomagnesemia
CPT/HCPCS: 36415; 80048; 83735

== ENCOUNTER → 2021-07-27 02:49 | Outpatient (CLI) | payer MEDICARE, SELFPAY ==
--- NOTE | 2021-07-27 | DI.US_ITS ---
APPROVED REPORT EXAM: Comprehensive 2D, Doppler, and color-flow Echocardiogram Patient Location: Out-Patient Butt Presser: Maria C Mojica RDCS (AE) Indications: Cardiomyopathy Other Information Study Quality: Adequate Conclusion Normal left ventricular chamber size. Mild concentric left ventricular hypertrophy. Estimated eject ion fraction is 45 to 50%. Paradoxic septal motion consistent with known left bundle branch block Normal right ventricular size and systolic function Both atria are normal in size Sclerotic trileaflet aortic valve without stenosis or regurgitation Mitral annular calcification with mild mitral regurgitation Structurally normal tricuspid valve with trace to mild regurgitation. Normal estimated right ventric ular systolic pressure Mildly dilated ascending aorta Wall motion Left Ventricle The left ventricle is normal size. Left ventricular systolic function is mildly decreased. Mild bobby ntric left ventricular hypertrophy. Paradoxical septal motion consistent with conduction abnormality. There is no ventricular septal defect visualized. LVEF is 45-50%. Right Ventricle Right ventricle is grossly normal in size. Right ventricular systolic function is grossly normal. The RVSP is 20.7mmHg. Atria The left atrium size is normal. The right atrium size is normal. The interatrial septum is intact wit h no evidence for an atrial septal defect. Aortic Valve The Aortic valve is sclerotic. Aortic valve is trileaflet. There is no aortic valvular stenosis. No a ortic regurgitation is present. Mitral Valve Moderate mitral annular calcification. No evidence of mitral valve stenosis. Mild mitral regurgitatio n. Tricuspid Valve The tricuspid valve is normal in structure. There is no tricuspid valve stenosis. Trace to mild tricu spid regurgitation. Pulmonic Valve The pulmonary valve is normal in structure. There is no pulmonic valvular stenosis. There is no pulmo adolph valvular regurgitation. Great Vessels The aortic root is normal in size. The ascending aorta is mildly dilated. Aortic arch is not well vis ualized. The IVC collapses <50% with inspiration. Pericardium There is no pericardial effusion. 2D Dimensions IVSD d PLAX 1.12 cm F: 0.6-1.0 LV Vol A2C d MOD 67.6 mL LVPW d PLAX 1.11 cm F: 0.6 - 1.0 LV Vol A4C d MOD 85.0 mL LVID d PLAX 4.75 cm F: 3.8 - 5.2 LA vol/ BSA A2C s A-L 26.4 mL/m2 LVDs 3.75 cm F: 2.2 - 3.5 LA vol/ BSA A4C s A-L 17.1 mL/m2 Ao Root d 2.64 cm F: 2.7 - 3.3 LA Vol/ BSA Biplane s A-L 21.7 mL/m2 RA Area A4C 11.05 cm2 LA Area A4C s MOD 11.84 cm2 RA Vol/ BSA A4C s A-L 15.7 mL/m2 LA Area A2C s MOD 15.02 cm2 Ao Asc Diam d 3.29 cm F: 2.3 - 3.1 LV EF A4C MOD 40.3 % LV EF Teichholz 41.8 % LV EF A2C MOD 41.9 % LVEF (Landaverde's) 41.65 % F: 54 - 74 LV EF Biplane MOD 41.7 % LV Volume 61.04 mL F: 46 - 106 SV 32.15 mL LV Volume Index 35.69 mL/m2 F: 29 - 61 SV Index 18.71 mL/m2 LV Vol Biplane MOD 77.2 mL FS 20.45 % M-Mode TAPSE 1.74 cm (M/F) >1.7 LV Diastology MV E' medial 0.034 (>0.07 m/s) E/A Ratio 0.6 LV E/e MED 13.75 (<14) MV E Vmax 0.47 (0.4-1.3 m/s) MV E' lateral 0.062 (>0.1 m/s) MV A Vmax 0.85 (0.4-1.3 m/s) LV E/e LAT 7.60 (<14) MV E/A Ratio 0.53 MV E/E' medial 13.75 MV E/E' lateral 7.64 Aortic Valve LVOT Area 3.05 cm2 AoV Area Vmax 1.86 cm2 LVOT Vmax 0.94 m/s AoV Area/ BSA (Vmax) 1.08 cm2/m2 LVOT Mean Lasha. 0.70 m/s JENNIFER Mean Lasha. 1.94 cm2 LVOT Peak Grad 3.5 mmHg JENNIFER Mean Lasha. Index 1.13 cm2/m2 LVOT Mean Grad 2.1 mmHg LVOT VTI 0.166 m LVOT Diam s 1.95 cm AoV Vmax 1.54 m/s Velocity Ratio 0.61 AoV Mean Lasha. 1.11 m/s AoV Peak Grad 9.4 mmHg LVOT SV 50.70 mL AoV Mean Grad 5.3 mmHg AoV VTI 0.285 m AoV Area VTI 1.78 cm2 AoV Area/ BSA (VTI) 1.04 cm/m2 Mitral Valve MV DT 354 (160-240 msec) MR Vmax 3.47 m/s MV PHT 103 msec MR VTI 1.472 m MV Area PHT 2.15 cm2 MR Peak Grad 48.2 mmHg MV VTI 0.219 m MR Mean Grad 34.4 mmHg MV VTI Annulus 0.228 m MV Area VTI 2.42 (4.0-6.0 cm2) Pulmonary Valve PV Vmax 0.84 (0.5-1.5 m/s) RVOT Peak Gr. 1.69 mmHg PV Peak Grad 2.8 mmHg RVOT Mean Gr. 0.75 mmHg PV Mean Grad 1.6 mmHg RVOT VTI 0.091 m PV VTI 0.148 m RVOT Vmax 0.65 m/s Tricuspid Valve TR Peak Grad 17.6 mmHg TR Vmax 2.10 m/s RA Pressure 3.00 mmHg RVSP (TR) 20.7 mmHg
== END ==
PROVIDERS: PCP Family Medicine; Visit Provider Family Medicine
DX: I42.8 Other cardiomyopathies (principal); I08.1 Rheumatic disorders of both mitral and tricuspid valves; I77.810 Thoracic aortic ectasia
CPT/HCPCS: 93306

== ENCOUNTER 2022-06-07 01:44 | Outpatient (CLI) | payer MEDICARE, SELFPAY | END 2022-06-07 01:45 | disposition home or self-care (01) | LOC: LOS 01:45 | PROVIDERS: PCP Family Medicine; Visit Provider Family Medicine ==

== ENCOUNTER 2023-04-15 02:48 | Outpatient (CLI) | payer OTHER, SELFPAY ==
[2023-04-15 12:45] LABS: Abs Immature Grans 0.01 10^3/uL (0.0-0.06); Absolute Basophil Count 0.04 10^3/uL (0.0-0.2); Absolute Eosinophil Count 0.11 10^3/uL (0.0-0.7); Absolute Lymphocyte Count 1.69 10^3/uL (1.2-3.4); Absolute Monocyte Count 0.46 10^3/uL (0.1-0.8); Absolute Neutrophil Count 4.94 10^3/uL (1.2-6.7); Basophils % 0.6; Eosinophils % 1.5; HCT 37.9 % (36.0-46.0); HGB 12.5 g/dL (11.2-15.7); Immature Grans % 0.1; Lymphocytes % 23.3; MCH 29.8 pg (27.0-33.0); MCV 91 fL (80-95); MPV 11.6 fL (8.0-11.0); Monocytes % 6.3; Neutrophils % 68.2; Platelet Count 159 10^3/uL (130-400); RBC 4.19 10^6/uL (3.93-5.22); RDW 13.4 % (11.7-14.6); RDW-SD 44.1 fL; WBC 7.25 10^3/uL (4.4-10.8)
[2023-04-15 13:33] LABS: Anion Gap 8.7 mmol/L (3-11); BUN 17 mg/dL (7-18); CO2 28.3 mmol/L (21.0-32.0); CREATININE 0.8 mg/dL (0.55-1.02); Calcium 8.9 mg/dL (8.5-10.1); Calculated LDL 142 mg/dL (<100); Chloride 107 mmol/L (98-107); Cholesterol 235 mg/dL (<200); Estimated GFR 75.37 (mL/min/1.73m2); Glucose 98 mg/dL (74-106); HDL Cholesterol 70 mg/dL (40-60); Sodium 144 mmol/L (136-145); Triglyceride 115 mg/dL (<150); Vitamin B12 194 pg/mL (193-986)
[2023-04-16 11:07] LABS: Syphilis Serology (RPR) Negative (Negative)
== END 2023-04-15 02:49 | disposition home or self-care (01) ==
LOC: LOS 02:48
PROVIDERS: PCP Family Medicine; Visit Provider Family Medicine
DX: E03.9 Hypothyroidism, unspecified (principal); R41.3 Other amnesia; E87.1 Hypo-osmolality and hyponatremia; E78.5 Hyperlipidemia, unspecified; D64.9 Anemia, unspecified
CPT/HCPCS: 36415; 80048; 80061; 82607; 84443; 85025; 86592

== ENCOUNTER 2023-08-30 19:21 | Emergency (ER) | payer OTHER, SELFPAY ==
[2023-08-30 19:34] VITALS: BP 132/71; PULSE 82; RESP 16; TEMP 36.5; O2SAT 95
--- NOTE | 2023-08-30 20:15 | RT.EKG_ITS ---
APPROVED REPORT Exam: Resting ECG Reason for Exam: [facility] Patient Location: E HR:66 bpm ECG Measurements Heart Rate 66 AXIS OH 191 P 53 QRSd 155 QRS -42 QT 485 T [id number] QTc 509 Conclusion Sinus rhythm...normal P axis, V-rate 60- 99 Atrial premature complex...SV complex w/ short R-R interval Probable left atrial enlargement...P >50mS, <-0.10mV V1 Left bundle branch block...QRSd>120, broad/notched R
--- NOTE | 2023-08-30 20:20 | W.ED.GENAD ---
Discharge Plan Disposition Patient Disposition: Home Condition: Good Discharge Details Clinical Impression: Vertigo Primary Care Provider: Chapo Toribio ED Provider: Radha Brown Home Meds and New Rx's Prescriptions: New meclizine 25 mg tablet 25 mg PO TID PRN (Reason: dizziness) Qty: 15 0RF Discontinued lisinopril 20 mg tablet 20 mg PO HS Qty: 90 3RF Hold Instructions: Changed by Provider metoprolol succinate 25 mg tablet extended release 24 hr 25 mg PO DAILY Qty: 90 3RF Hold Instructions: Changed by Provider donepezil 10 mg tablet 10 mg PO DAILY Qty: 90 3RF No Action meclizine 25 mg tablet 25 mg PO TID PRN (Reason: dizziness) Qty: 60 2RF memantine [Namenda] 5 mg tablet 5 mg PO BID Qty: 60 2RF Rx Instructions: start 5 mg/day for one week, then BID triamcinolone acetonide 0.1 % cream 1 applic topical BID PRN (Reason: ear itch) Qty: 30 0RF PROVENTIL HFA 18 GM HFA.AER.AD 2 puff Inhalation Q6H PRN Qty: 1 2RF aspirin [Adult Aspirin Regimen] 81 mg tablet,delayed release (DR/EC) 81 mg PO DAILY sertraline 100 mg tablet 150 mg PO DAILY Qty: 90 3RF Rx Instructions: Dose increase 08/02/23 lorazepam 1 mg tablet 0.5 mg PO BID Qty: 30 2RF risperidone [Risperdal] 0.5 mg tablet 0.5 mg PO QHS Qty: 30 0RF Discharge Instructions Instructions: Vertigo (ED) Additional Instructions: Drink plenty of fluids at home as you are likely a little bit dry today. Use the meclizine 25 mg 3 times a day as needed for dizziness. Medical Decision Making Patient was initially sitting with her eyes closed saying that she was dizzy and tired. She is now sitting on the edge of the stretcher with her eyes wide open and looks quite bright. The dizziness has resolved. Her elevated BUN and specific gravity make her appear slightly dehydrated and we are going to give her half a liter of fluid. I do not want a powder with fluid due to the history of cardiomyopathy. She and her family were updated and all feel comfortable taking her home when IV fluid is done. Medical Records Medical records reviewed: Yes I reviewed the patient's medical records. Imaging Data Radiologic Study: My impression: CT brain atrophy, NAD, xrays knee and chest show NAD (s/p TKR) Radiologist's impression: Exam(s) PROCEDURE INFORMATION: Exam: XR Chest Exam date and time: 08/30/2023 21:59 Age: 77 years old Clinical indication: Pain and injury or trauma; Blunt trauma (contusions or hematomas); Chest pressure; Injury date: 08/30/23; Patient HX: AMS, fall, pain right TECHNIQUE: Imaging protocol: Radiologic exam of the chest. Views: 2 views. COMPARISON: CT chest PE CTA 12/08/2018 18:48 FINDINGS: Tubes, catheters and devices: Cardiac monitoring device projects over the left chest wall. Lungs: Emphysema without airspace consolidation. Pleural spaces: No pleural effusion. No pneumothorax. Heart/Mediastinum: Mild cardiomegaly with mild central vascular congestion. Bones/joints: No acute fracture.? IMPRESSION: 1. ? Mild cardiomegaly with mild central vascular congestion. 2. ? Emphysema without airspace consolidation. Remainder showed NAD Lab Data Lab results reviewed: Yes I reviewed the patient's lab results. Lab results narrative: Patient pCO2 VBG was 29, BUN 25. Otherwise CBC, Chem-20, Trope, and ammonia were all within normal limits. UA >1.030. ketones ECG Data Attestation: I personally reviewed and interpreted this ECG (s) as follows: (Normal sinus rhythm 65, PAC, left atrial enlargement, left bundle branch block, no change versus 11/22/2020) Prior ECG tracings: available for review HPI General Date/Time Provider Initiated Documentation: 08/30/23 19:28. HPI Narrative: This 77-year-old female patient is brought in by her family from a local level 3 nursing facility with chief complaint of confusion and vertigo. The patient's niece is an EMPLOYMENT SUPERVISOR and says she has a long history of vertigo. She used to take meclizine but has been off most of her medicines for some time due to not going to her doctor. She has a history of dementia and is currently on Namenda, sertraline, and aspirin. The nursing facility told the family that they were not sure whether or not she had fallen today. The patient is confused about this. She denies headache but does say she has dizziness. She is sitting with her eyes closed and said she just wants to go to sleep. According to another family member she has been very confused and agitated today. She tore her room apart looking for her glasses did some other things that are just not like her. The patient denies pain anywhere. Related Data Home Medications Medication Instructions Recorded Confirmed aspirin 81 mg tablet,delayed 81 mg PO DAILY 08/03/18 08/30/23 release (Adult Aspirin Regimen) meclizine 25 mg tablet 25 mg PO TID PRN dizziness #60 tabs 07/18/20 08/30/23 triamcinolone acetonide 0.1 % 1 applic topical BID PRN ear itch 06/24/23 08/30/23 topical cream #30 grams sertraline 100 mg tablet 150 mg PO DAILY #90 tabs 08/02/23 08/30/23 memantine 5 mg tablet (Namenda) 5 mg PO BID #60 tabs 08/19/23 08/30/23 lorazepam 1 mg tablet 0.5 mg PO BID #30 tabs 08/20/23 08/30/23 risperidone 0.5 mg tablet 0.5 mg PO QHS #30 tabs 08/25/23 08/30/23 (Risperdal) meclizine 25 mg tablet 25 mg PO TID PRN dizziness #15 tabs 08/30/23 Previous Rx's Medication Instructions Recorded meclizine 25 mg tablet 25 mg PO TID PRN dizziness #60 tabs 07/18/20 triamcinolone acetonide 0.1 % 1 applic topical BID PRN ear itch 06/24/23 topical cream #30 grams sertraline 100 mg tablet 150 mg PO DAILY #90 tabs 08/02/23 memantine 5 mg tablet (Namenda) 5 mg PO BID #60 tabs 08/19/23 lorazepam 1 mg tablet 0.5 mg PO BID #30 tabs 08/20/23 risperidone 0.5 mg tablet 0.5 mg PO QHS #30 tabs 08/25/23 (Risperdal) meclizine 25 mg tablet 25 mg PO TID PRN dizziness #15 tabs 08/30/23 Allergies Allergy/AdvReac Type Severity Reaction Status Date / Time No Known Allergies Allergy Verified 08/30/23 19:39 General Stated Complaint: GenMedical PRINCE: 3 Review of Systems Constitutional Constitutional: Denies chills, Denies fever(s), Denies headache(s) and Denies weakness Eyes Eyes: Denies diplopia and Reports other (no redness) ENT Ears, Nose, Mouth, and Throat: Reports vertigo, Denies otalgia, Denies headache(s), Denies nasal congestion, Denies nasal discharge, Denies neck pain and Denies sore throat Cardiovascular Cardiovascular: Denies chest pain, Denies palpitations and Denies dyspnea Respiratory Respiratory: Denies cough and Denies dyspnea Gastrointestinal Gastrointestinal: Denies abdominal pain, Denies diarrhea, Denies nausea and Denies vomiting Genitourinary Genitourinary: Denies dysuria Musculoskeletal Musculoskeletal: Denies myalgias, Denies muscle weakness, Denies neck pain, Denies numbness and Reports other (edema) Integumentary/Breasts Skin/Breast: Denies change in pigmentation and Denies rash Neurologic Neurologic: Reports confusion, Reports vertigo, Denies headache(s), Denies numbness and Denies weakness Psychiatric Psychiatric: Reports confusion Endocrine Endocrine: Denies palpitations [facility] All Active Problems (Updated 08/30/23 @ 23:20 by Radha Brown MD) Allergic contact dermatitis of pinna (Acute) Nail dystrophy (Acute) Cognitive impairment (Acute) Depression (Chronic) Stress incontinence (Acute) Vertigo (Acute) Hypomagnesemia (Acute) Heart failure (Acute) 12/2017 - LVEF 35-40% (ECHO) 03/2017-LVEF 30-35% (ECHO) 12/2018 LVEF 35-40% Nocturnal hypoxemia (Acute 06/07/16) 06/07/16-SLEEP STUDY; [facility] Hyperlipidemia (Chronic) Left bundle branch block (Chronic) First noted on EKG 2016 Question correlation with cardiomyopathy Left knee DJD (Chronic) Depression (Chronic) unchanged Cardiomyopathy (Chronic) same meds see cardiology as arranged Left carpal tunnel syndrome (Acute) Positive D-dimer (Acute ~12/08/18) [facility]; NEGATIVE PE-kb Calculus of kidney (Acute 05/01/16) TORREZ (dyspnea on exertion) (Acute) Presence of cardiac device (Acute ~10/2019) 10/19 [facility] [employer]; [employer] MODEL LNQ11 (SERIAL #[id number])-kb Arm weakness (Acute) Dizziness (Acute) Acute carpal tunnel syndrome of left wrist (Acute) External otitis of left ear (Acute) Chest pain (Acute) Dysuria (Acute) Non-ischemic cardiomyopathy (Acute) Closed head injury with concussion (Acute) Urgency of micturition (Acute) Cataract (Chronic) bilateral Memory deficit (Acute) Nuclear sclerotic cataract of left eye (Acute) Cortical cataract of left eye (Acute) Medical History Cardiomyopathy Hypertension Kidney stones Surgical History Abdominal hysterectomy Pacemaker Pt. states she doesn't think has one Replacement of total knee joint Status post abdominal hysterectomy Status post total knee replacement Status post total left knee replacement DOS: 09/28/18 Dr. Eason Family History Mother Stroke Father Heart disease Alcohol abuse Sister Heart disease Sister Heart disease Sister No problems noted. Sister No problems noted. Brother Heart disease Hx of cardiac cath with stents Brother FH: mental illness Brother No problems noted. Son Prostate cancer Daughter Heart disease Myocardial infarction Hx of stent placed Alcohol abuse Other Crohns disease Ulcerative colitis Social History Smoking/Tobacco Use Status: Former Tobacco Use Quit Date: 12/01/08 Smoking risk assessment performed?: Yes Alcohol Intake: current Alcohol Intake frequency: a few times a month Alcohol type: beer, wine and hard liquor Drug use: Never Substance use type: does not use Pets and animals: Yes Pets and animals: dog(s) Current gender identity: female What type of physical activity do you participate in: walking Frequency: daily Do you feel safe at home: Yes Do you feel safe in your relationship?: Yes Additional Social history: Lives alone. Exam Const General: no acute distress, well developed, well groomed and not in acute distress Nutritional Appearance: well nourished Orientation: alert and oriented x3 HENMT Head: normocephalic and atraumatic Ears: external ears normal Mouth: oropharynx normal and moist mucous membranes Throat: posterior oropharynx normal Eyes Conjunctivae: conjunctivae normal Neck Neck: full ROM and supple Chest Chest: normal inspection of the chest Resp Effort & Inspection: normal respiratory effort Auscultation: clear to auscultation bilaterally Cardio Rate: regular rate Rhythm: regular rhythm Heart Sounds: no murmurs and no rubs GI Inspection: normal to inspection Palpation: soft, nontender and other (non distended) Auscultation: normal bowel sounds Back/Spine/Pelvis Back: no CVA tenderness Cervical Spine: No cervical spinal tenderness Thoracic/Lumbar Spine: No thoracic spinal tenderness and No lumbar spinal tenderness Pelvis: no pain with anterior-posterior compression and no tenderness over symphysis pubis Skin General skin exam: no rashes or lesions noted and other (pink, warm, dry) Neuro General: patient alert, patient awake and patient oriented x3 Speech: speech normal Motor: other (STEVENS) Sensory Exam: no sensory deficits noted Extrem General: normal to inspection, full ROM and pedal edema present Right lower extremity: knee (Vague diffuse tenderness to palpation) Psych Mental Status: mental status grossly normal Speech and Movement: speech and movement normal Affect: normal affect Course Vital Signs Vital signs: Vital Signs Temperature 36.5 C 08/30/23 19:34 Pulse 82 08/30/23 19:34 Respiratory Rate 16 08/30/23 19:34 Blood Pressure 132/71 08/30/23 19:34 Pulse Oximetry 95 08/30/23 19:34 Temperature 36.5 C 08/30/23 19:34 Temperature Source Temporal Artery Scan 08/30/23 19:34 Pulse 82 08/30/23 19:34 Respiratory Rate 16 08/30/23 19:34 Respiratory Effort Normal 08/30/23 19:34 Blood Pressure 132/71 08/30/23 19:34 Blood Pressure Position Sitting 08/30/23 19:34 Pulse Oximetry 95 08/30/23 19:34 Oxygen Delivery Method Room Air 08/30/23 19:34 Oxygen Flow Rate 0 08/30/23 19:34
[2023-08-30 20:45] LABS: Abs Immature Grans 0.02 10^3/uL (0.0-0.06); Absolute Basophil Count 0.03 10^3/uL (0.0-0.2); Absolute Eosinophil Count 0.05 10^3/uL (0.0-0.7); Absolute Lymphocyte Count 1.49 10^3/uL (1.2-3.4); Absolute Monocyte Count 0.49 10^3/uL (0.1-0.8); Absolute Neutrophil Count 6.04 10^3/uL (1.2-6.7); BE (Venous) 4 mmol/L (-2-3); Basophils % 0.4; Eosinophils % 0.6; HCO3 (Venous) 29 mmol/L (23-28); HCT 39.6 % (36.0-46.0); HGB 12.9 g/dL (11.2-15.7); Immature Grans % 0.2; Lactate 1.1 mmol/L (0.6-1.4); Lymphocytes % 18.3; MCH 29.3 pg (27.0-33.0); MCHC 32.6 % (32.0-36.0); MCV 90 fL (80-95); MPV 11.2 fL (8.0-11.0); Neutrophils % 74.5; O2 Sat (Venous) 73 %; Platelet Count 161 10^3/uL (130-400); RBC 4.41 10^6/uL (3.93-5.22); RDW 13.1 % (11.7-14.6); RDW-SD 43.2 fL; TCO2 (Venous) 26 mmol/L (24-29); WBC 8.12 10^3/uL (4.4-10.8); pCO2 (Venous) 46 mmHg (41-51); pH (Venous) 7.41 (7.31-7.41); pO2 (Venous) 39 mmHg
[2023-08-30 21:07] LABS: Ammonia 19 umol/L (11-32)
[2023-08-30 21:08] LABS: ALT 12 U/L (14-59); AST 14 U/L (15-37); Albumin 3.8 g/dL (3.4-5.0); Alkaline Phosphatase 67 U/L (46-116); Anion Gap 9.3 mmol/L (3-11); BUN 25 mg/dL (7-18); Bilirubin, Total 0.5 mg/dL (0.2-1.0); CO2 27.7 mmol/L (21.0-32.0); CREATININE 0.9 mg/dL (0.55-1.02); Calcium 9.5 mg/dL (8.5-10.1); Chloride 105 mmol/L (98-107); Estimated GFR 65.44 (mL/min/1.73m2); Glucose 129 mg/dL (74-106); Potassium 3.5 mmol/L (3.5-5.1); Sodium 142 mmol/L (136-145); Total Protein 7.3 g/dL (6.4-8.2); Troponin I < 50 ng/L (<or=60)
[2023-08-30] MEDS: Meclizine 25 MG TAB (21:35)
--- NOTE | 2023-08-30 22:07 | DI.RAD_ITS ---
Exam(s) XR CHEST 2V PA LATERAL EXAM: XR CHEST 2V PA LATERAL CLINICAL HISTORY: AMS, fall, pain Right. TECHNIQUE: 2D digital imaging was performed. COMPARISON: No exams were available for comparison FINDINGS: 2 views: Cardiac monitoring device. Heart size is normal. The mediastinum is not widened. Lungs are clear. No infiltrates nor pleural effusions. IMPRESSION: No acute pulmonary findings. DATA REPOSITORY: RADIATION DOSE DELIVERED:
--- NOTE | 2023-08-30 22:08 | DI.RAD_ITS ---
Exam(s) XR KNEE RT 3V AP,LAT,FREDY EXAM: XR KNEE RT 3V AP,LAT,FREDY CLINICAL HISTORY: pain, ? fall. TECHNIQUE: 2D digital imaging was performed. COMPARISON: CR XR KNEE RT 3V AP,LAT,FREDY from 05/24/2021 FINDINGS: 3 views There is stable position alignment of the components of the right knee prosthesis. No fracture nor o bvious loosening. IMPRESSION: No acute osseous findings. Arthroplasty appears intact. DATA REPOSITORY: RADIATION DOSE DELIVERED:
--- NOTE | 2023-08-30 22:08 | DI.CT_ITS ---
Exam(s) CT HEAD WO EXAM: CT HEAD WO CLINICAL HISTORY: AMS, vertigo, ? fall. TECHNIQUE: Imaging Protocol: Axial computed tomography images with coronal and sagittal reformatted images were created and reviewed COMPARISON: CT CT HEAD CERVICAL SPINE WO from 11/22/2020 FINDINGS: There are no skull fractures. There is no fluid in the visualized paranasal sinuses. There is no evidence of intracranial hemorrhage, mass effect, or shift of midline structures. There are no extra-axial fluid collections. The ventricles are not enlarged or shifted and there is no blo od within the ventricular system nor within the basal cisterns. Mild periventricular hypodensity consistent with chronic small vessel disease but no acute territoria l infarct evident. IMPRESSION: No acute intracranial findings on this noninfused CT scan of the brain. Chronic small-vessel white m atter ischemic changes again noted. RADIATION DOSE DELIVERED: 648.67mGy.cm Total DLP DATA REPOSITORY: All CT scans at this facility are submitted to the National Radiology Data Registry (NRDR) Dose Index Registry (DIR) with the [employer] (ACR). RADIATION OPTIMIZATION: All CT scans at this facility use at least one of these dose optimization te chniques: automated exposure control; mA and/or kV adjustment per patient size (includes targeted exa ms where dose is matched to clinical indication); or iterative reconstruction.
--- NOTE | 2023-08-30 22:27 | DI.VRAD_ITS ---
PROCEDURE INFORMATION: Exam: XR Right Knee Exam date and time: 08/30/2023 22:04 Age: 77 years old Clinical indication: Pain and injury or trauma; Blunt trauma; Right; Injury date: 08/30/23; Prior surgery; Surgery date: 6+ months; Surgery type: Knee replacement; Patient HX: Pain, fall TECHNIQUE: Imaging protocol: Radiologic exam of the right knee. Views: 3 views. COMPARISON: CR XR KNEE RT 3V AP,LAT,FREDY 05/24/2021 14:45 FINDINGS: Bones/joints: Right total knee arthroplasty in anatomic alignment with satisfactory appearance of the hardware. No acute fracture or subluxation. Soft tissues: Benign appearing distal quadriceps enthesophyte. IMPRESSION: 1. No acute bony pathology. 2. Right total knee arthroplasty in anatomic alignment with satisfactory appearance of the hardware. Dictated and Authenticated by: Denisa Rosa MD. Ordering:GAMALIEL Garcia MD
--- NOTE | 2023-08-30 22:27 | DI.VRAD_ITS ---
PROCEDURE INFORMATION: Exam: XR Chest Exam date and time: 08/30/2023 21:59 Age: 77 years old Clinical indication: Pain and injury or trauma; Blunt trauma (contusions or hematomas); Chest pressure; Injury date: 08/30/23; Patient HX: AMS, fall, pain right TECHNIQUE: Imaging protocol: Radiologic exam of the chest. Views: 2 views. COMPARISON: CT chest PE CTA 12/08/2018 18:48 FINDINGS: Tubes, catheters and devices: Cardiac monitoring device projects over the left chest wall. Lungs: Emphysema without airspace consolidation. Pleural spaces: No pleural effusion. No pneumothorax. Heart/Mediastinum: Mild cardiomegaly with mild central vascular congestion. Bones/joints: No acute fracture. IMPRESSION: 1. Mild cardiomegaly with mild central vascular congestion. 2. Emphysema without airspace consolidation. Dictated and Authenticated by: Denisa Rosa MD. Ordering:GAMALIEL Garcia MD
--- NOTE | 2023-08-30 22:28 | DI.VRAD_ITS ---
PROCEDURE INFORMATION: Exam: CT Head Without Contrast Exam date and time: 08/30/2023 21:53 Age: 77 years old Clinical indication: Injury or trauma; Blunt trauma (contusions or hematomas); Consciousness not specified; Other: AMS, vertigo, fall TECHNIQUE: Imaging protocol: Computed tomography of the head without contrast. Radiation optimization: All CT scans at this facility use at least one of these dose optimization techniques: automated exposure control; mA and/or kV adjustment per patient size (includes targeted exams where dose is matched to clinical indication); or iterative reconstruction. COMPARISON: CT HEAD CERVICAL SPINE WO 11/22/2020 19:47 FINDINGS: Brain: Atrophy and chronic appearing white matter changes. No edema or hemorrhage. Cerebral ventricles: Ex vacuo dilation of the ventricular system. Paranasal sinuses: No acute sinusitis. Mastoid air cells: No mastoid effusion. Bones/joints: Chronic TMJ degenerative changes. The calvarium is intact. Soft tissues: No suspicious lesions. IMPRESSION: No acute intracranial findings. Dictated and Authenticated by: Denisa Rosa MD. Ordering:GAMALIEL Garcia MD
[2023-08-30 22:55] LABS: Bilirubin Negative (Negative); Blood Negative (Negative); Clarity Clear (Clear); Glucose Negative (Negative); Ketones Trace mg/dL (Negative); Leukocyte Esterase Negative (Negative); Nitrite Negative (Negative); Specific Gravity >= 1.030 (1.005-1.025); Urobilinogen 0.2 mg/dL (Up to 0.2); pH 5.5 (5-8)
[2023-08-30] MEDS: Normal Saline 500 ML IV (23:10)
[2023-08-30 23:36] VITALS: BP 144/87; PULSE 68; TEMP 36.3
== END 2023-08-30 23:40 | disposition home or self-care (01) ==
PROVIDERS: Emergency Provider Emergency Medicine; PCP Family Medicine
DX: R42 Dizziness and giddiness (principal)
CPT/HCPCS: 73562; 80053; 82805; 93005; 96360; 99284; 70450; 71046; 81003; 82140; 83605; 83735; 84484; 85025; 93010

== ENCOUNTER 2023-10-12 09:45 | Outpatient (REF) | payer OTHER, SELFPAY ==
[2023-10-12 16:40] LABS: COMMENT (LAB VIEW ONLY) 175.47 mg/dL; Microalb ug/mg Crea 6.3 ug/mg Cr
[2023-10-12 16:50] LABS: Bilirubin Negative (Negative); Blood Trace-intact (Negative); Clarity Sl Cloudy (Clear); Glucose Negative (Negative); Ketones Trace mg/dL (Negative); Leukocyte Esterase Negative (Negative); Nitrite Negative (Negative); Specific Gravity >= 1.030 (1.005-1.025); Urobilinogen 0.2 mg/dL (Up to 0.2)
[2023-10-12 17:05] LABS: ALT 16 U/L (14-59); AST 19 U/L (15-37); Albumin 3.8 g/dL (3.4-5.0); Alkaline Phosphatase 64 U/L (46-116); Anion Gap 9.9 mmol/L (3-11); BUN 23 mg/dL (7-18); Bilirubin, Total 0.5 mg/dL (0.2-1.0); CO2 26.1 mmol/L (21.0-32.0); CREATININE 0.9 mg/dL (0.55-1.02); Calcium 9.2 mg/dL (8.5-10.1); Calculated LDL 217 mg/dL (<100); Chloride 104 mmol/L (98-107); Cholesterol 331 mg/dL (<200); Estimated GFR 65.44 (mL/min/1.73m2); Glucose 103 mg/dL (74-106); HDL Cholesterol 81 mg/dL (40-60); Magnesium 2.1 mg/dL (1.8-2.4); Sodium 140 mmol/L (136-145); TSH (W/Ref FT4) 0.86 uIU/mL (0.36-3.74); Total Protein 6.7 g/dL (6.4-8.2); Triglyceride 165 mg/dL (<150)
[2023-10-12 17:14] LABS: Bacteria Few HPF (Negative); Epithelial Cells Many HPF (Negative); RBC 0-2 HPF (0-2)
[2023-10-12 17:15] LABS: C & S Indicated? No/Sq. Contamination; Casts Negative LPF (Negative); Crystals Mod Calcium Oxalate HPF (Negative); Mucus Negative (Negative)
[2023-10-12 17:56] LABS: Vitamin B12 228 pg/mL (193-986)
== END 2023-10-12 09:46 ==
LOC: NCHCN 09:45
PROVIDERS: PCP Family Medicine; Visit Provider Nurse Practitioner Family
DX: R07.9 Chest pain, unspecified (principal); I10 Essential (primary) hypertension; E78.5 Hyperlipidemia, unspecified; I42.9 Cardiomyopathy, unspecified; R41.89 Other symptoms and signs involving cognitive functions and awareness; F32.9 Major depressive disorder, single episode, unspecified; E83.42 Hypomagnesemia; J43.9 Emphysema, unspecified
CPT/HCPCS: 80053; 80061; 81003; 81015; 82043; 82570; 82607; 83735; 84443